=== PATIENT | female | born 1955 | race Caucasian/White ===

== ENCOUNTER 2018-01-07 16:52 | Emergency (ER) | payer MEDICARE, OTHER, SELFPAY ==
[2018-01-07] VITALS (27 sets, daily range): BP systolic 171–178; BP diastolic 69–84; PULSE 81–95; RESP 13–44; TEMP 37; O2SAT 93–100
[2018-01-07] MEDS: Normal Saline 250 ML IV (17:45)
--- NOTE | 2018-01-07 17:58 | ED.GENADUL ---
Disposition Clinical Impression: Diabetes Disposition: HOME Condition: Fair Additional Instructions: Continue to encourage hydration. Please go back to your typical 40 units of Lantus dosing. Continue with sliding scale as previously advised. Please follow-up with primary care as soon as possible, please contact the office tomorrow to schedule appointment. If you develop vomiting, inability to stay hydrated, visual changes, shortness of breath, chest pain, inability to control your glucose or other new/worsening symptoms please seek care urgently once again. Continue other recommendations as ordered the time of discharge by [facility]. Referrals: Vickie Corey [Primary Care Provider] - Medical Decision Making - Lab Data Laboratory Tests 01/07/18 17:01 Sodium Cancelled Potassium Cancelled Chloride Cancelled Carbon Dioxide Cancelled Anion Gap Cancelled BUN Cancelled Creatinine Cancelled Estimated GFR/1.73 m2 Cancelled Glucose Cancelled Calcium Cancelled Results reviewed for labs ordered during visit: Yes - Medical Decision Making Patient presents today with chief complaint of hyperglycemia. Patient reports that typically her glucose is very well controlled. Is typically not 40 units of Lantus nightly. However, this was decreased to 10 at the time of discharge 2 days ago from [facility]. She reports that at the time she was at [facility] she was having episodes of hypoglycemia. However, she states that this was linked to her having very poor p.o. intake. The patient is being treated for an ileus, she was being given clear liquid diet. Now that her diet has progressed her glucose has been increasing. She reports overall she is feeling quite well. Patient is not tachypneic. She is not tachycardic. Overall, patient appears much improved from when I saw her prior to her admission at [facility]. Pyama-co-laae testing here reveals a glucose of high on her glucometer. We will obtain laboratory evaluation. I have also asked for a urine specimen although the patient urinates very infrequently. We will attempt to collect a specimen. Patient will receive a 250 cc saline bolus. Laboratory evaluation significant for WBC of 26, this is typical baseline for the patient. Creatinine is 6.3 which is also baseline. Glucose is 727. Patient has not had spiked glucose like this historically. Sodium slightly low at 127. Potassium is 3.6. Discussed case with Dr. Osborn as well as planned for patient's hyperglycemia. She is received 250 cc bolus. I am hesitant to do more than this is the patient is on peritoneal dialysis and is due for another treatment. She continues to report that she feels quite well. We will recheck a another [id number] glucose. Patient be given her 40 of Lantus. She states that prior to her recent hospitalization she had been on 40 units of Lantus every night for several years and this is typically kept her fairly well controlled. Her diet is back to normal I feel that bring her back to her typical dosing is appropriate. She feels that her dietary intake and appetite is back to baseline. We will also give short acting insulin based on her most recent [id number] testing. Patient will be given p.o. potassium as well. Potassium currently 3.6. Bicarb is normal, no anion gap, no ketones in urine. Despite patient's unusually high glucose, I do not see evidence of DKA at this time. Despite bolus, POC glucose still continues to read as high. Patient will be given 6 units of NovoLog. She received 40 units of Lantus. 40 mg of p.o. potassium. Recheck of glucose is 586. Discussed case with Dr. Hayward. We discussed further treatment. However, as the patient is down trending, patient will not be eating further tongiht, Dr. Hayward recommended no further insulin therapy. There is no evidence laboratory evaluation the patient is in DKA. She continues to feel quite quite well and is requesting discharge home. I advised that she go back to her typical Lantus dosing. She will follow-up with primary care tomorrow. Advised she continue with her short acting sliding scale as previously advised. She will otherwise follow the recommendations at [facility]. We also discussed that she needs to continue to monitor her oral intake. However, as her dietary intake is back to baseline I feel that returning her medications to baseline is appropriate at this time. We did discuss the signs symptoms of DKA as well as hypoglycemia and when to seek care immediately once again. Patient is to be discharged at this time, she will be able to complete her home peritoneal dialysis once discharged. She was given strict return precautions. Her will contact primary care tomorrow morning to set up follow-up appointment. All the questions and concerns were addressed in agreement with this plan. History of Present Illness - General Chief complaint: Diabetes Stated complaint: HIGH GLUCOSE Time Seen by Provider: 01/07/18 16:53 Source: patient, family, RN notes reviewed Mode of arrival: ambulatory Limitations: no limitations - History of Present Illness Initial comments: Patient is a 62-year-old female, well-known to myself, with chief complaint of hyperglycemia. Patient is accompanied by her . Patient has history of type II diabetes, end-stage renal failure, hypertension, hyperlipidemia. Patient performs home peritoneal dialysis 5 times daily. Patient presents today with chief complaint of hyperglycemia with reading of high at home. Patient reports that she was discharged from [facility] 2 days ago where she is being treated for metabolic encephalopathy. Patient had been transferred to [facility] from our institution after patient was being found to have altered mental status thought to be associated with methadone usage. At the time of discharge her p.o. intake had been very diminished and that her glucose had been low. However, she reports that since being home her appetite has been improving. Patient had difficulty with constipation while at [facility]. This is thought to be related to narcotic usage after being treated for distal fibular fracture. She reports that she typically uses daily Lantus. Had been taking 40 mg daily but was discharged with directions to take 10 mg daily. She states that she had pancakes with syrup, baking, milk, orange juice thus far today. Her and states that she was snacking this afternoon. Home care then checked her glucose and found this elevated reading. She reports overall she is feeling her baseline. She denies any visual change. No nausea or vomiting. No GI upset. Has been performing her dialysis is typical. Last performed this at 1400. Patient makes minimal urine. - Related Data Aspirin [Aspirin EC] 81 mg PO DAILY 10/26/12 Insulin Glargine,Hum.rec.anlog [Lantus Solostar] 10 unit SQ DAILY 10/26/12 Acetaminophen [Tylenol] 325 mg PO PRN PRN 12/15/15 Calcium Acetate [Phoslo Gel Cap] 1 tab PO AC 12/15/15 Docusate Sodium [Colace] 100 mg PO DAILY 12/13/16 Polyethylene Glycol 3350 [Miralax] 1 packet PO DAILY 12/13/16 Insulin Aspart [NovoLOG Flexpen] 10 - 14 units SC AC #0 12/14/16 Rosuvastatin [Crestor] 5 mg PO HS #30 tab 12/14/16 Calcitriol 0.25 mcg PO .MON/WED/FRI 09/12/17 Folic Acid/Vitamin B Comp W-C [Nephrocaps] 1 cap PO DAILY 09/12/17 Metoprolol Succinate 1 tab PO DAILY 09/12/17 Sevelamer Carbonate [Renvela] 2 cap PO AC 09/12/17 Hydrocodone/Acetaminophen [Vicodin 5-300 mg Tablet] 1 each PO HS 11/08/17 Lorazepam [Ativan] 0.5 mg PO HS 11/08/17 Rolaidos 2 tab PO HS 11/08/17 Sevelamer Carbonate [Renvela] 800 mg PO QMEALS 11/16/17 Gabapentin 100 mg PO TID 12/18/17 Allergies Allergy/AdvReac Type Severity Reaction Status Date / Time alprazolam [From Xanax] Allergy Severe lethargic Unverified 01/07/18 17:07 ciprofloxacin [From Cipro] Allergy Mild Skin Rash Unverified 01/07/18 17:07 pneumococcal vaccine Allergy arm swelled Unverified 01/07/18 17:07 lisinopril AdvReac Intermediate hyperkalemi Unverified 01/07/18 17:07 a Review of Systems Constitutional: no symptoms reported, see HPI Eyes: denies: vision change Respiratory: no symptoms reported. denies: cough, shortness of breath, SOB at rest, stridor, wheezing Cardiovascular: denies: chest pain, palpitations Gastrointestinal: denies: abdominal pain, nausea, vomiting, diarrhea Genitourinary: as per HPI. denies: urgency, dysuria, frequency Musculoskeletal: as per HPI (Patient continues to have discomfort in the left lower extremity associated with ankle fracture) Skin: denies: rash Neurological: denies: headache Past Medical History - Past Medical History Medical history: CAD, cancer (CLL), diabetes, ESRD, hyperlipidemia, hypertension Surgical history: , hysterectomy, other (Multiple attempts at fistula and left arm complicated by infections, recent antibiotics 2 weeks ago, area now healed) - Social History Alcohol use: none Drug use: none General Exam - General Limitations: no limitations General appearance: alert, in no apparent distress - Head Head exam: Present: atraumatic - Eye Eye exam: Present: normal apperance - ENT ENT exam: Present: mucous membranes dry - Respiratory Respiratory exam: Present: normal lung sounds bilaterally. Absent: respiratory distress, wheezes, rales, rhonchi - Cardiovascular Cardiovascular Exam: Present: regular rate, systolic murmur - GI/Abdominal GI/Abdominal exam: Present: soft. Absent: distended, tenderness, guarding - Rectal Rectal exam: Present: deferred - Extremities Exam Extremities exam: Absent: normal inspection (Left lower extremity is in a splint) - Neurological Exam Neurological exam: Present: alert, abnormal gait (Patient is able to weight-bear well on the right lower extremity but is nonweightbearing on left lower extremity) - Psychiatric Psychiatric exam: Present: normal affect, normal mood - Skin Skin exam: Present: warm, dry, normal color (Patient appears pale but this is baseline from icing her historically) Course Vital Signs - 24 hr 01/07/18 16:59 Temperature 37 C Pulse 87 Respiratory 23 Rate Blood Pressure 178/69 Pulse Oximetry 94 L
--- NOTE | 2018-01-07 18:07 | ED.GENADUL_ITS ---
Disposition Clinical Impression: Diabetes Disposition: HOME Condition: Fair Additional Instructions: Continue to encourage hydration. Please go back to your typical 40 units of Lantus dosing. Continue with sliding scale as previously advised. Please follow-up with primary care as soon as possible, please contact the office tomorrow to schedule appointment. If you develop vomiting, inability to stay hydrated, visual changes, shortness of breath, chest pain, inability to control your glucose or other new/worsening symptoms please seek care urgently once again. Continue other recommendations as ordered the time of discharge by [facility]. Referrals: Vickie Corey [Primary Care Provider] - Medical Decision Making - Lab Data Laboratory Tests 01/07/18 17:01 Sodium Cancelled Potassium Cancelled Chloride Cancelled Carbon Dioxide Cancelled Anion Gap Cancelled BUN Cancelled Creatinine Cancelled Estimated GFR/1.73 m2 Cancelled Glucose Cancelled Calcium Cancelled Results reviewed for labs ordered during visit: Yes - Medical Decision Making Patient presents today with chief complaint of hyperglycemia. Patient reports that typically her glucose is very well controlled. Is typically not 40 units of Lantus nightly. However, this was decreased to 10 at the time of discharge 2 days ago from [facility]. She reports that at the time she was at [facility] she was having episodes of hypoglycemia. However, she states that this was linked to her having very poor p.o. intake. The patient is being treated for an ileus, she was being given clear liquid diet. Now that her diet has progressed her glucose has been increasing. She reports overall she is feeling quite well. Patient is not tachypneic. She is not tachycardic. Overall, patient appears much improved from when I saw her prior to her admission at [facility]. [id number] testing here reveals a glucose of high on her glucometer. We will obtain laboratory evaluation. I have also asked for a urine specimen although the patient urinates very infrequently. We will attempt to collect a specimen. Patient will receive a 250 cc saline bolus. Laboratory evaluation significant for WBC of 26, this is typical baseline for the patient. Creatinine is 6.3 which is also baseline. Glucose is 727. Patient has not had spiked glucose like this historically. Sodium slightly low at 127. Potassium is 3.6. Discussed case with Dr. Osborn as well as planned for patient's hyperglycemia. She is received 250 cc bolus. I am hesitant to do more than this is the patient is on peritoneal dialysis and is due for another treatment. She continues to report that she feels quite well. We will recheck a another point- of-care glucose. Patient be given her 40 of Lantus. She states that prior to her recent hospitalization she had been on 40 units of Lantus every night for several years and this is typically kept her fairly well controlled. Her diet is back to normal I feel that bring her back to her typical dosing is appropriate. She feels that her dietary intake and appetite is back to baseline. We will also give short acting insulin based on her most recent point -of-care testing. Patient will be given p.o. potassium as well. Potassium currently 3.6. Bicarb is normal, no anion gap, no ketones in urine. Despite patient's unusually high glucose, I do not see evidence of DKA at this time. Despite bolus, POC glucose still continues to read as high. Patient will be given 6 units of NovoLog. She received 40 units of Lantus. 40 mg of p.o. potassium. Recheck of glucose is 586. Discussed case with Dr. Hayward. We discussed further treatment. However, as the patient is down trending, patient will not be eating further tongiht, Dr. Hayward recommended no further insulin therapy. There is no evidence laboratory evaluation the patient is in DKA. She continues to feel quite quite well and is requesting discharge home. I advised that she go back to her typical Lantus dosing. She will follow-up with primary care tomorrow. Advised she continue with her short acting sliding scale as previously advised. She will otherwise follow the recommendations at [facility]. We also discussed that she needs to continue to monitor her oral intake. However, as her dietary intake is back to baseline I feel that returning her medications to baseline is appropriate at this time. We did discuss the signs symptoms of DKA as well as hypoglycemia and when to seek care immediately once again. Patient is to be discharged at this time, she will be able to complete her home peritoneal dialysis once discharged. She was given strict return precautions. Her will contact primary care tomorrow morning to set up follow-up appointment. All the questions and concerns were addressed in agreement with this plan. History of Present Illness - General Chief complaint: Diabetes Stated complaint: HIGH GLUCOSE Time Seen by Provider: 01/07/18 16:53 Source: patient, family, RN notes reviewed Mode of arrival: ambulatory Limitations: no limitations - History of Present Illness Initial comments: Patient is a 62-year-old female, well-known to myself, with chief complaint of hyperglycemia. Patient is accompanied by her . Patient has history of type II diabetes, end-stage renal failure, hypertension, hyperlipidemia. Patient performs home peritoneal dialysis 5 times daily. Patient presents today with chief complaint of hyperglycemia with reading of high at home. Patient reports that she was discharged from [facility] 2 days ago where she is being treated for metabolic encephalopathy. Patient had been transferred to [facility] from our institution after patient was being found to have altered mental status thought to be associated with methadone usage. At the time of discharge her p.o. intake had been very diminished and that her glucose had been low. However, she reports that since being home her appetite has been improving. Patient had difficulty with constipation while at [facility]. This is thought to be related to narcotic usage after being treated for distal fibular fracture. She reports that she typically uses daily Lantus. Had been taking 40 mg daily but was discharged with directions to take 10 mg daily. She states that she had pancakes with syrup, baking, milk, orange juice thus far today. Her and states that she was snacking this afternoon. Home care then checked her glucose and found this elevated reading. She reports overall she is feeling her baseline. She denies any visual change. No nausea or vomiting. No GI upset. Has been performing her dialysis is typical. Last performed this at 1400. Patient makes minimal urine. - Related Data Aspirin [Aspirin EC] 81 mg PO DAILY 10/26/12 Insulin Glargine,Hum.rec.anlog [Lantus Solostar] 10 unit SQ DAILY 10/26/12 Acetaminophen [Tylenol] 325 mg PO PRN PRN 12/15/15 Calcium Acetate [Phoslo Gel Cap] 1 tab PO AC 12/15/15 Docusate Sodium [Colace] 100 mg PO DAILY 12/13/16 Polyethylene Glycol 3350 [Miralax] 1 packet PO DAILY 12/13/16 Insulin Aspart [NovoLOG Flexpen] 10 - 14 units SC AC #0 12/14/16 Rosuvastatin [Crestor] 5 mg PO HS #30 tab 12/14/16 Calcitriol 0.25 mcg PO .MON/WED/FRI 09/12/17 Folic Acid/Vitamin B Comp W-C [Nephrocaps] 1 cap PO DAILY 09/12/17 Metoprolol Succinate 1 tab PO DAILY 09/12/17 Sevelamer Carbonate [Renvela] 2 cap PO AC 09/12/17 Hydrocodone/Acetaminophen [Vicodin 5-300 mg Tablet] 1 each PO HS 11/08/17 Lorazepam [Ativan] 0.5 mg PO HS 11/08/17 Rolaidos 2 tab PO HS 11/08/17 Sevelamer Carbonate [Renvela] 800 mg PO QMEALS 11/16/17 Gabapentin 100 mg PO TID 12/18/17 Allergies Allergy/AdvReac Type Severity Reaction Status Date / Time alprazolam [From Xanax] Allergy Severe lethargic Unverified 01/07/18 17:07 ciprofloxacin [From Cipro] Allergy Mild Skin Rash Unverified 01/07/18 17:07 pneumococcal vaccine Allergy arm swelled Unverified 01/07/18 17:07 lisinopril AdvReac Intermediate hyperkalemi Unverified 01/07/18 17:07 a Review of Systems Constitutional: no symptoms reported, see HPI Eyes: denies: vision change Respiratory: no symptoms reported. denies: cough, shortness of breath, SOB at rest, stridor, wheezing Cardiovascular: denies: chest pain, palpitations Gastrointestinal: denies: abdominal pain, nausea, vomiting, diarrhea Genitourinary: as per HPI. denies: urgency, dysuria, frequency Musculoskeletal: as per HPI (Patient continues to have discomfort in the left lower extremity associated with ankle fracture) Skin: denies: rash Neurological: denies: headache Past Medical History - Past Medical History Medical history: CAD, cancer (CLL), diabetes, ESRD, hyperlipidemia, hypertension Surgical history: , hysterectomy, other (Multiple attempts at fistula and left arm complicated by infections, recent antibiotics 2 weeks ago, area now healed) - Social History Alcohol use: none Drug use: none General Exam - General Limitations: no limitations General appearance: alert, in no apparent distress - Head Head exam: Present: atraumatic - Eye Eye exam: Present: normal apperance - ENT ENT exam: Present: mucous membranes dry - Respiratory Respiratory exam: Present: normal lung sounds bilaterally. Absent: respiratory distress, wheezes, rales, rhonchi - Cardiovascular Cardiovascular Exam: Present: regular rate, systolic murmur - GI/Abdominal GI/Abdominal exam: Present: soft. Absent: distended, tenderness, guarding - Rectal Rectal exam: Present: deferred - Extremities Exam Extremities exam: Absent: normal inspection (Left lower extremity is in a splint ) - Neurological Exam Neurological exam: Present: alert, abnormal gait (Patient is able to weight- bear well on the right lower extremity but is nonweightbearing on left lower extremity) - Psychiatric Psychiatric exam: Present: normal affect, normal mood - Skin Skin exam: Present: warm, dry, normal color (Patient appears pale but this is baseline from icing her historically) Course Vital Signs - 24 hr 01/07/18 16:59 Temperature 37 C Pulse 87 Respiratory 23 Rate Blood Pressure 178/69 Pulse Oximetry 94 L
[2018-01-07 18:10] LABS: ALT 53 U/L (12-78); AST 38 U/L (15-37); Abs Immature Grans 0.11 k/cumm (0.0-0.09); Absolute Basophil Count 0.03 k/cumm (0.0-0.2); Absolute Eosinophil Count 0.18 k/cumm (0.0-0.7); Absolute Lymphocyte Count 13.31 k/cumm (1.2-3.4); Absolute Neutrophil Count 11.55 k/cumm (1.2-6.7); Albumin 2.1 g/dL (3.4-5.0); Alkaline Phosphatase 103 U/L (46-116); Anion Gap 9.6 mmol/L (3-11); BUN 35 mg/dL (7-18); Basophils % 0.1; Bilirubin, Total 0.4 mg/dL (0.2-1.0); CO2 30.4 mmol/L (21.0-32.0); Calcium 8.5 mg/dL (8.5-10.1); Chloride 87 mmol/L (98-107); Eosinophils % 0.7; HGB 11.1 g/dL (12.0-15.5); Immature Grans % 0.4; Lymphocytes % 50.6; Mean Corp. HGB Concentration 32.6 g/dL (32.0-36.0); Mean Corpuscular Hemoglobin 31.2 pg (27.0-33.0); Mean Corpuscular Volume 95.5 fL (80-95); Mean Platelet Volume 10.8 fL (8.0-11.0); Monocytes % 4.3; Neutrophils % 43.9; Platelet Count 350 x1000/uL (130-400); Potassium 3.6 mmol/L (3.5-5.1); RBC 3.56 m/cumm (4.00-5.20); RBC Distribution Width 13.9 % (11.7-14.6); Sodium 127 mmol/L (136-145)
[2018-01-07 18:28] LABS: Absolute Monocyte Count 1.13 k/cumm (0.11-0.7)
[2018-01-07 18:32] LABS: CREATININE 6.31 mg/dL (0.55-1.02); Glucose 727 mg/dL (70-100)
[2018-01-07 19:00] LABS: Anisocytosis 2+; Diff Comment Diff Reviewed
[2018-01-07 19:06] LABS: Bilirubin Negative (Negative); Blood Small (Negative); Clarity Sl Cloudy; Glucose >=1000 mg/dL (Negative); Ketones Negative (Negative); Leukocyte Esterase Negative (Negative); Nitrite Negative (Negative); Specific Gravity 1.015 (1.005-1.025); Urobilinogen 0.2 EU/dL (Up TO 0.2)
[2018-01-07 19:16] LABS: Bacteria Moderate HPF (Negative); C & S Indicated? No/Sq. Contamination; Casts Negative LPF (Negative); Crystals Negative HPF (Negative); Epithelial Cells Many HPF (Negative); Mucus Negative (Negative); RBC Negative (0-2)
[2018-01-07] MEDS: Insulin Aspart 100 UNITS/ML UNIT 6 UNITS SC (20:10)
[2018-01-07] MEDS: Insulin Glargine 300 UNITS/3 ML PEN 40 UNITS SC (20:15)
[2018-01-07] MEDS: Potassium Chloride 20 MEQ TABCR 40 MEQ PO (20:17)
[2018-01-08 00:15] VITALS: BP 171/84; PULSE 85; RESP 22; O2SAT 94
== END 2018-01-07 21:34 | disposition home or self-care (01) ==
PROVIDERS: Physician Assistant; Emergency Provider Physician Assistant; PCP Family Medicine
DX: E11.22 Type 2 diabetes mellitus with diabetic chronic kidney disease (principal); N18.6 End stage renal disease; Z99.2 Dependence on renal dialysis; I10 Essential (primary) hypertension
CPT/HCPCS: 96360; 99284; 99285; J1815; 36415; 36416; 80048; 80053; 82962; 81003; 81015; 85025

== ENCOUNTER 2018-02-12 12:12 | Emergency (ER) | payer OTHER, MEDICARE, SELFPAY ==
[2018-02-12] VITALS (38 sets, daily range): BP systolic 69–167; BP diastolic 41–95; PULSE 68–82; RESP 13–26; TEMP 36.5–36.8; O2SAT 87–99
--- NOTE | 2018-02-12 13:06 | ED.GENADUL_ITS ---
Discharge Plan Disposition Patient Disposition: HOME Discharge Details Chief Complaint: AMS/LOC Clinical Impression: Confusion, Hypokalemia Primary Care Provider: Vickie Corey ED Provider: Zan Guzman Home Meds and New Rx's Prescriptions: Continue lorazepam [Ativan] 0.5 MG tablet 0.5 mg PO HS RF: 0 hydrocodone-acetaminophen [Vicodin] 1 EACH tablet 1 ea PO HS RF: 0 rolaidos 2 tab PO HS RF: 0 aspirin 81 MG tablet,delayed release (DR/EC) 81 mg PO DAILY RF: 0 insulin glargine [Lantus Solostar U-100 Insulin] 100 UNIT/1 ML insulin pen 55 unit SQ DAILY RF: 0 calcium acetate 667 MG capsule 1 tab PO AC RF: 0 acetaminophen [Tylenol] 325 MG tablet 325 mg PO PRN PRNRF: 0 polyethylene glycol 3350 17 GM powder in packet 1 packet PO DAILY RF: 0 docusate sodium [Colace] 100 MG capsule 100 mg PO DAILY RF: 0 rosuvastatin [Crestor] 5 MG tablet 5 mg PO HS Qty: 30 RF: 3 insulin aspart U-100 [Novolog Flexpen U-100 Insulin] 300 UNITS/3 ML insulin pen 10 - 14 units Sub-Q AC Qty: 0 RF: 0 metoprolol succinate 100 MG tablet extended release 24 hr 1 tab PO DAILY RF: 0 B complex with C#20-folic acid [Renal Caps] 1 CAP capsule 1 cap PO DAILY RF: 0 calcitriol 0.25 MCG capsule 0.25 mcg PO .MON/WED/FRI RF: 0 sevelamer carbonate [Renvela] 800 MG tablet 2 cap PO AC RF: 0 sevelamer carbonate [Renvela] 800 MG tablet 800 mg PO QMEALS RF: 0 gabapentin 100 MG capsule 100 mg PO TID RF: 0 Discharge Instructions Instructions: Hypokalemia (ED), Altered Mental Status (ED) Additional Instructions: Please follow-up with your primary care physician. Call today to schedule follow-up for later this week. Return to the ER for any worsening or new concerning symptoms. Referrals: Vickie Corey [Primary Care Provider] - Discharge Data Discharge Date/Time-TO BE ENTERED AT DEPARTURE: 02/12/18 16:46 Medical Decision Making MDM Narrative Medical decision making narrative: 13:05 -- 62yo f with ESRD on peritoneal dialysis here with altered mentation. Afebrile. Hemodynamically stable. Abd benign. Consider electrolyte abnormalities. Will check labs. 15:35 -- Labs reviewed: Chronic leukocytosis noted and unchanged. Hypokalemia with potassium of 3.0 noted. This may be contributing to her symptoms. Plan to treat with oral potassium 20 mEq and 10 mg of IV potassium. Patient reassessed and abdomen remains benign. Patient has been stable here. I reviewed the diagnostic results with the patient and her and plan to treat with potassium. I recommended that they follow-up with their primary care physician later this week and that they should return immediately should they have any worsening or new concerning symptoms. Lab Data Lab results reviewed: Yes I reviewed the patient's lab results. Lab Results 02/12/18 02/12/18 02/12/18 Range/Units 13:15 13:15 13:15 WBC 22.37 H (4.4-10.8) k/cumm RBC 3.41 L (4.00-5.20) m/cumm Hgb 10.8 L (12.0-15.5) g/dL Hct 32.3 L (36.0-46.0) % MCV 94.7 (80-95) fL MCH 31.7 (27.0-33.0) pg MCHC 33.4 (32.0-36.0) g/dL RDW 12.6 (11.7-14.6) % Plt Count 162 (130-400) x1000/uL MPV 11.7 H (8.0-11.0) fL Immature Gran % 0.4 Neutrophils % 29.1 Lymphocytes % 63.7 Monocytes % 5.8 Eosinophils % 0.8 Basophils % 0.2 Absolute Neutrophils 6.51 (1.2-6.7) k/cumm Absolute Lymphocytes 14.25 H (1.2-3.4) k/cumm Absolute Monocytes 1.30 H (0.11-0.7) k/cumm Absolute Eosinophils 0.18 (0.0-0.7) k/cumm Absolute Basophils 0.04 (0.0-0.2) k/cumm Sodium 138 (136-145) mmol/L Potassium 3.0 L (3.5-5.1) mmol/L Chloride 99 (98-107) mmol/L Carbon Dioxide 29.4 (21.0-32.0) mmol/L Anion Gap 9.6 (3-11) mmol/L BUN 41 H (7-18) mg/dL Creatinine 6.71 H* (0.55-1.02) mg/dL Estimated GFR/1.73 m2 6.25 (mL/min/1.73m2) Glucose 114 H (70-100) mg/dL Calcium 8.8 (8.5-10.1) mg/dL Total Bilirubin 0.2 (0.2-1.0) mg/dL AST 26 (15-37) U/L ALT 34 (12-78) U/L Alkaline Phosphatase 82 (46-116) U/L Ammonia 14 (11-32) umol/L Total Protein 5.6 L (6.4-8.2) g/dL Albumin 2.5 L (3.4-5.0) g/dL TSH 1.80 (0.358-3.74) uIU/mL HPI - General Adult General Date/Time Provider Initiated Documentation: 02/12/18 12:41 . Limitations to Documentation: altered mental status . Information obtained by: patient and family . HPI Narrative: 62 yo f with ESRD on HD, DM, HTN, here with altered mental status. Hx limited 2/2 altered mentation. notes that over the past 2 days mentation has declined. Wax and wanes. Seems confused. Inappropiate responses and poor hand writing. At times severe. No modifiers. No pain. Related Data Home Medications Medication Instructions Recorded Confirmed aspirin 81 mg PO DAILY 10/26/12 02/12/18 insulin glargine [Lantus Solostar 55 unit SQ DAILY 10/26/12 02/12/18 U-100 Insulin] acetaminophen [Tylenol] 325 mg PO PRN PRN 12/15/15 02/12/18 calcium acetate 1 tab PO AC 12/15/15 02/12/18 docusate sodium [Colace] 100 mg PO DAILY 12/13/16 02/12/18 polyethylene glycol 3350 1 packet PO DAILY 12/13/16 02/12/18 B complex with C#20-folic acid 1 cap PO DAILY 09/12/17 02/12/18 [Renal Caps] calcitriol 0.25 mcg PO .MON/MON/Mon09/12/17 02/12/18 metoprolol succinate 1 tab PO DAILY 09/12/17 02/12/18 sevelamer carbonate [Renvela] 2 cap PO AC 09/12/17 02/12/18 Rolaidos 2 tab PO HS 11/08/17 02/12/18 hydrocodone-acetaminophen [Vicodin] 1 ea PO HS 11/08/17 02/12/18 lorazepam [Ativan] 0.5 mg PO HS 11/08/17 02/12/18 sevelamer carbonate [Renvela] 800 mg PO QMEALS 11/16/17 02/12/18 gabapentin 100 mg PO TID 12/18/17 02/12/18 Previous Rx's Medication Instructions Recorded insulin aspart U-100 [Novolog 10 - 14 units SUB-Q AC #0 12/14/16 Flexpen U-100 Insulin] rosuvastatin [Crestor] 5 mg PO HS #30 tab 12/14/16 Allergies Allergy/AdvReac Type Severity Reaction Status Date / Time alprazolam [From Xanax] Allergy Severe lethargic Unverified 02/12/18 12:54 ciprofloxacin [From Cipro] Allergy Mild Skin Rash Unverified 02/12/18 12:54 pneumococcal vaccine Allergy arm swelled Unverified 02/12/18 12:54 lisinopril AdvReac Intermediate hyperkalemi Unverified 02/12/18 12:54 a General Stated Complaint: AMS/LOC KAREN: 2 Review of Systems Review of Systems All systems reviewed & are unremarkable except as noted in HPI and below Cardiovascular Denies chest pain, Denies syncope, Denies irregular heart rhythm and Denies dyspnea Respiratory Denies dyspnea Gastrointestinal Denies abdominal pain, Denies nausea and Denies vomiting Neurologic Reports confusion, Denies syncope and Denies seizure-like activity Psychiatric Reports confusion Exam Const General: cooperative and no acute distress Orientation: alert and awake Limitations: altered mental status [facility] Head: normocephalic and atraumatic Mouth: moist mucous membranes Eyes Conjunctivae: conjunctivae normal EOM: EOM intact bilaterally Neck Neck: normal visual inspection, trachea midline and No JVD Chest Chest: no tenderness Resp Effort & Inspection: normal respiratory effort Auscultation: clear to auscultation bilaterally, no rales, no rhonchi and no wheezes Cardio Rate: regular rate Rhythm: regular rhythm Heart Sounds: no gallops, murmur systolic II/ and no rubs GI Palpation: soft and nontender Auscultation: normal bowel sounds Skin General skin exam: dry skin Other: warm Neuro General: alert, awake, oriented Patient Orientation: Person, tone normal, moves all extremities, no meningeal signs, no focal motor deficits, CN's II-XI intact bilaterally and confused (thinks aug, when asked year responds it's a pain) Cranial Nerves: PERRL, accommodation normal and EOM intact bilaterally Speech: other (confused at times, speech clear) Motor: strength 5/5 throughout Sensory Exam: no sensory deficits noted Extrem General: no pedal edema Course Vital Signs Temperature 36.5 C 02/12/18 12:38 Pulse 73 02/12/18 12:38 Respiratory Rate 16 02/12/18 12:38 Blood Pressure 127/72 02/12/18 12:38 Pulse Oximetry 97 02/12/18 12:38 Temperature 36.5 C 02/12/18 12:38 Pulse 73 02/12/18 12:38 Respiratory Rate 16 02/12/18 12:45 Blood Pressure 127/72 02/12/18 12:38 Pulse Oximetry 97 02/12/18 12:38
[2018-02-12 13:27] LABS: Abs Immature Grans 0.09 k/cumm (0.0-0.09); Basophils % 0.2; Eosinophils % 0.8; HCT 32.3 % (36.0-46.0); HGB 10.8 g/dL (12.0-15.5); Immature Grans % 0.4; Lymphocytes % 63.7; Mean Corp. HGB Concentration 33.4 g/dL (32.0-36.0); Mean Corpuscular Hemoglobin 31.7 pg (27.0-33.0); Mean Corpuscular Volume 94.7 fL (80-95); Mean Platelet Volume 11.7 fL (8.0-11.0); Monocytes % 5.8; Neutrophils % 29.1; Platelet Count 162 x1000/uL (130-400); RBC 3.41 m/cumm (4.00-5.20); RBC Distribution Width 12.6 % (11.7-14.6); White Blood Cell Count 22.37 k/cumm (4.4-10.8)
[2018-02-12 13:28] LABS: Absolute Basophil Count 0.04 k/cumm (0.0-0.2); Absolute Eosinophil Count 0.18 k/cumm (0.0-0.7); Absolute Lymphocyte Count 14.25 k/cumm (1.2-3.4); Absolute Neutrophil Count 6.51 k/cumm (1.2-6.7)
[2018-02-12 13:35] LABS: Ammonia 14 umol/L (11-32)
--- NOTE | 2018-02-12 13:45 | DI.CT_ITS ---
SYMPTOMS/DIAGNOSIS: ALTERED MENTATION CT BRAIN: Noncontrast. Comparison 12/18/17. The ventricles and sulci are consistent with the patient's age. There are areas of decreased attenuation in the white matter consistent with small vessel ischemic disease. No acute intracranial hemorrhage , infarct, midline shift or mass effect is identified. The visualized paranasal sinuses are clear. No fluid levels are seen. The mastoid air cells are well pneumatized. The calvarium is intact. IMPRESSION: No acute intracranial process. The findings were discussed with Qi Suarez of the emergency department on the date of the examination.
[2018-02-12 13:55] LABS: ALT 34 U/L (12-78); AST 26 U/L (15-37); Albumin 2.5 g/dL (3.4-5.0); Alkaline Phosphatase 82 U/L (46-116); Anion Gap 9.6 mmol/L (3-11); BUN 41 mg/dL (7-18); Bilirubin, Total 0.2 mg/dL (0.2-1.0); CO2 29.4 mmol/L (21.0-32.0); Calcium 8.8 mg/dL (8.5-10.1); Chloride 99 mmol/L (98-107); Estimated GFR 6.25 (mL/min/1.73m2); Glucose 114 mg/dL (70-100); Sodium 138 mmol/L (136-145); Total Protein 5.6 g/dL (6.4-8.2)
[2018-02-12 14:03] LABS: CREATININE 6.71 mg/dL (0.55-1.02)
[2018-02-12] MEDS: Potassium Chloride 20 MEQ TABCR 40 MEQ PO (15:22)
[2018-02-12] MEDS: POTASSIUM CHLORIDE 10 MEQ/100 ML BAG 100 MEQ IVPB (15:24)
== END 2018-02-12 16:46 | disposition home or self-care (01) ==
PROVIDERS: Emergency Provider Student in an Organized Health Care Education/Training Program; PCP Family Medicine
DX: R41.0 Disorientation, unspecified (principal); E87.6 Hypokalemia; C91.10 Chronic lymphocytic leukemia of B-cell type not having achieved remission; E11.22 Type 2 diabetes mellitus with diabetic chronic kidney disease; Z79.4 Long term (current) use of insulin; I12.0 Hypertensive chronic kidney disease with stage 5 chronic kidney disease or end stage renal disease; N18.6 End stage renal disease; Z99.2 Dependence on renal dialysis
CPT/HCPCS: 36415; 36416; 80053; 82962; 93005; 96365; 99285; 70450; 82140; 84443; 85025; 93010; J3480

== ENCOUNTER 2018-02-16 15:44 | Outpatient (REF) | payer OTHER, MEDICARE, SELFPAY ==
[2018-02-16 20:33] LABS: Anion Gap 9.2 mmol/L (3-11); BUN 40 mg/dL (7-18); CO2 30.8 mmol/L (21.0-32.0); Calcium 8.9 mg/dL (8.5-10.1); Chloride 100 mmol/L (98-107); Estimated GFR 6.73 (mL/min/1.73m2); Glucose 202 mg/dL (70-100); Potassium 3.4 mmol/L (3.5-5.1); Sodium 140 mmol/L (136-145)
[2018-02-16 21:44] LABS: CREATININE 6.29 mg/dL (0.55-1.02)
== END 2018-02-16 16:04 ==
LOC: NCHCN 15:44
PROVIDERS: PCP Family Medicine; Visit Provider Family Medicine
DX: R53.1 Weakness (principal)
CPT/HCPCS: 80048

== ENCOUNTER 2018-04-02 13:25 | Outpatient (CLI) | payer OTHER, MEDICARE, SELFPAY ==
[2018-04-02 14:05] LABS: ALT 32 U/L (12-78); AST 22 U/L (15-37); Albumin 3.1 g/dL (3.4-5.0); Alkaline Phosphatase 69 U/L (46-116); Anion Gap 9.5 mmol/L (3-11); BUN 60 mg/dL (7-18); Bilirubin, Total 0.4 mg/dL (0.2-1.0); CO2 30.5 mmol/L (21.0-32.0); Calcium 9.2 mg/dL (8.5-10.1); Chloride 97 mmol/L (98-107); Estimated GFR 6.41 (mL/min/1.73m2); Glucose 266 mg/dL (70-100); Potassium 3.8 mmol/L (3.5-5.1); Sodium 137 mmol/L (136-145)
[2018-04-02 14:10] LABS: CREATININE 6.56 mg/dL (0.55-1.02)
== END 2018-04-02 13:45 ==
PROVIDERS: PCP Family Medicine; Visit Provider Internal Medicine Medical Oncology
DX: C91.90 Lymphoid leukemia, unspecified not having achieved remission (principal)
CPT/HCPCS: 36415; 80053

== ENCOUNTER 2018-05-25 18:53 | Emergency (ER) | payer OTHER, MEDICARE, SELFPAY ==
[2018-05-25] VITALS (14 sets, daily range): BP systolic 103–131; BP diastolic 39–97; PULSE 71–79; RESP 13–25; TEMP 37–38.2; O2SAT 92–97
--- NOTE | 2018-05-25 19:39 | DI.RAD_ITS ---
SYMPTOM/DIAGNOSIS: COUGH, CONGESTION, ? PNEUMONIA PA AND LATERAL CHEST: Comparison is made with 12/13/17. The patient has a history of a peritoneal dialysis catheter. Free air is seen beneath the diaphragm which was also seen on chest xray of 12/13/17. The heart size is within normal limits. There is an infiltrate seen in the retrocardiac region on the lateral view. The lungs are otherwise clear. IMPRESSION: Retrocardiac infiltrate. Free air likely secondary to peritoneal dialysis catheter.
--- NOTE | 2018-05-25 20:04 | W.ED.GENAD ---
Discharge Plan Disposition Patient Disposition: [facility] Condition: Stable Discharge Details Chief Complaint: RespSymp Clinical Impression: Flu-like symptoms, Acute on chronic kidney failure, Acute hyperkalemia Primary Care Provider: Vickie Corey ED Provider: Ap Whitlock [place] Meds and New Rx's Prescriptions: No Action lorazepam [Ativan] 0.5 MG tablet 0.5 mg PO HS RF: 0 hydrocodone-acetaminophen [Vicodin] 1 EACH tablet 1 ea PO HS RF: 0 rolaidos 2 tab PO HS RF: 0 aspirin 81 MG tablet,delayed release (DR/EC) 81 mg PO DAILY RF: 0 Lantus Solostar U-100 Insulin 100 UNIT/1 ML insulin pen 55 unit SQ DAILY RF: 0 calcium acetate 667 MG capsule 1 tab PO AC RF: 0 acetaminophen [Tylenol] 325 MG tablet 325 mg PO PRN PRNRF: 0 polyethylene glycol 3350 17 GM powder in packet 1 packet PO DAILY RF: 0 docusate sodium [Colace] 100 MG capsule 100 mg PO DAILY RF: 0 rosuvastatin [Crestor] 5 MG tablet 5 mg PO HS Qty: 30 RF: 3 Novolog Flexpen U-100 Insulin 300 UNITS/3 ML insulin pen 10 - 14 units Sub-Q AC Qty: 0 RF: 0 metoprolol succinate 100 MG tablet extended release 24 hr 1 tab PO DAILY RF: 0 Renal Caps 1 CAP capsule 1 cap PO DAILY RF: 0 calcitriol 0.25 MCG capsule 0.25 mcg PO .MON/WED/FRI RF: 0 sevelamer carbonate [Renvela] 800 MG tablet 2 cap PO AC RF: 0 sevelamer carbonate [Renvela] 800 MG tablet 800 mg PO QMEALS RF: 0 gabapentin 100 MG capsule 100 mg PO TID RF: 0 Discharge Data Discharge Date/Time-TO BE ENTERED AT DEPARTURE: 05/25/18 22:55 Medical Decision Making <Barney Foreman DO - Last Filed: 05/26/18 09:19> This is a 63-year-old female with a past medical history of peritoneal dialysis, as well as CLL, who presents for symptoms of fatigue, cough, and congestion. Patient is febrile here in the emergency department. Lung sounds demonstrate no significant crackles but with her persistent cough and concern for clinical pneumonia. We will evaluate for flu in spite of her influenza test secondary to her chronic immunocompromise with her dialysis CLL. We will gently rehydrate the patient due to her evidence of mild clinical dehydration. We will treat with Tylenol for her fever, and reassess. The case will be signed out to my colleague Dr. Whitlock. EKG 19: 50 Rate 78, OK 170, QTc 410, QRS 90, sinus rhythm, no significant ST elevation or depression, slight peaking of T waves in V3 and V4. No T wave inversion. No Q waves. HPI <Barney Foreman, - Last Filed: 05/26/18 09:19> General Date/Time Provider Initiated Documentation: 05/25/18 19:33. HPI Narrative: This is a 62-year-old female with a past medical history of chronic kidney disease stage IV on home dialysis, as well as chronic lymphocytic leukemia, diabetes mellitus, and hypertension who presents today for evaluation of fatigue, cough that is nonproductive, weakness, temperature at home of 100.8. She has had a runny nose, and congestion as well. She has had her flu shot. She denies any chest pain, shortness of breath, abdominal pain, vomiting or diarrhea. She denies any headache, neck pain or neck stiffness. She denies any recent antibiotic use. She has missed a few of her episodes of dialysis today secondary to fatigue and not feeling well. Patient denies any other modifying factors. She denies any other complaints at this time. Related Data Home Medications Medication Instructions Recorded Confirmed Lantus Solostar U-100 Insulin 55 unit SQ DAILY 10/26/12 05/25/18 aspirin 81 mg PO DAILY 10/26/12 05/25/18 acetaminophen [Tylenol] 325 mg PO PRN PRN 12/15/15 05/25/18 calcium acetate 1 tab PO AC 12/15/15 05/25/18 docusate sodium [Colace] 100 mg PO DAILY 12/13/16 05/25/18 polyethylene glycol 3350 1 packet PO DAILY 12/13/16 05/25/18 Novolog Flexpen U-100 Insulin 10 - 14 units SUB-Q AC #0 12/14/16 05/25/18 rosuvastatin [Crestor] 5 mg PO HS #30 tab 12/14/16 05/25/18 Renal Caps 1 cap PO DAILY 09/12/17 05/25/18 calcitriol 0.25 mcg PO .MON/MON/FRI 09/12/17 05/25/18 metoprolol succinate 1 tab PO DAILY 09/12/17 05/25/18 sevelamer carbonate [Renvela] 2 cap PO AC 09/12/17 05/25/18 Rolaidos 2 tab PO HS 11/08/17 05/25/18 hydrocodone-acetaminophen [Vicodin] 1 ea PO HS 11/08/17 05/25/18 lorazepam [Ativan] 0.5 mg PO HS 11/08/17 05/25/18 sevelamer carbonate [Renvela] 800 mg PO QMEALS 11/16/17 05/25/18 gabapentin 100 mg PO TID 12/18/17 05/25/18 Previous Rx's Medication Instructions Recorded Novolog Flexpen U-100 Insulin 10 - 14 units SUB-Q AC #0 12/14/16 rosuvastatin [Crestor] 5 mg PO HS #30 tab 12/14/16 Allergies Allergy/AdvReac Type Severity Reaction Status Date / Time alprazolam [From Xanax] Allergy Severe lethargic Unverified 05/25/18 19:16 ciprofloxacin [From Cipro] Allergy Mild Skin Rash Unverified 05/25/18 19:16 pneumococcal vaccine Allergy arm swelled Unverified 05/25/18 19:16 lisinopril AdvReac Intermediate hyperkalemi Unverified 05/25/18 19:16 a General Stated Complaint: RespSymp KAREN: 3 Review of Systems <Barney Foreman DO - Last Filed: 05/26/18 09:19> Review of Systems All systems reviewed & are unremarkable except as noted in HPI and below PFSH <Barney Foreman DO - Last Filed: 05/26/18 09:19> Social History caregiver/support person: Yes household members: significant other and children housing: house number of children: 2 number of grandchildren: 3 current occupational status: disabled current occupation: was a charge nurse at [employer] and pets and animals: Yes pets and animals: dog(s), horse(s) and farm animals leisure activities: other diet: diabetic well-balanced diet: daily or most days eating out: rarely or never Smoking/Tobacco Use Status: Never History History Para 2 Hx # Term Pregnancies Multiple births Hx # Pregnancies Ectopic pregnancies AB induced Hx Number of Living Children AB spontaneous Exam <Barney Foreman DO - Last Filed: 05/26/18 09:19> Narrative Exam Narrative: 1.Const: Well-nourished, Well-developed, appearing stated age 2.Eyes: PERRL, no conjunctival injection, and symmetrical lids. 3.ENT: Atraumatic external nose and ears. Moist MM. Neck: Symmetric, trachea midline, No thyromegaly. No significant erythema in the posterior oropharynx. No evidence of tonsillar exudate. No significant cervical lymphadenitis 4.CVS: +S1/S2, No murmurs or gallops. Peripheral pulses 2+ and equal in all extremities. Brisk capillary refill in all extremities. 5.RESP: Unlabored respiratory effort. Clear to auscultation bilaterally. No significant wheezes rales or rhonchi 6.GI: Soft, Nontender/Nondistended, No hepatosplenomegaly. No guarding or rebound. Dialysis catheter is in place in the left abdomen. No redness. No tenderness, no tenderness on percussion. 7.MSK: Normocephalic/Atraumatic, Extremities w/o deformity or ttp No cyanosis or clubbing, Normal movement of all extremities 8.Skin: Warm, Dry. No rashes or lesions. 9.Neuro: ob/gyn II-XII grossly intact. Sensation grossly intact, no focal neurologic deficits. 10.Psych: (AAO) x3. Appropriate mood and affect Course <Barney Foreman DO - Last Filed: 05/26/18 09:19> Vital Signs Temperature 37.0 C 05/25/18 19:12 Pulse 79 05/25/18 19:12 Respiratory Rate 18 05/25/18 19:12 Blood Pressure 131/97 H 05/25/18 19:12 Pulse Oximetry 95 05/25/18 19:12 Temperature 37.0 C 05/25/18 19:12 Temperature Source Temporal Artery Scan 05/25/18 19:12 Pulse 79 05/25/18 19:12 Respiratory Rate 18 05/25/18 19:12 Blood Pressure 131/97 H 05/25/18 19:12 Blood Pressure Position Sitting 05/25/18 19:12 Pulse Oximetry 95 05/25/18 19:12 Oxygen Delivery Method Room Air 05/25/18 19:12 Oxygen Flow Rate 0 05/25/18 19:12 Pain Level 0 05/25/18 19:12 Lab/Test Results Lab/Test Results: 05/25/18 19:30 Blood Blood Culture - Pending 05/25/18 19:54 Nasopharynx Influenza Types A,B Antigen - Pending 05/25/18 19:42 Blood Blood Culture - Pending Sign Out <Barney Foreman DO - Last Filed: 05/26/18 09:19> Sign Out Data: Sign Out Comment: pending labs and CXR Last updated by Barney Foreman DO at 05/25/18 20:34 Post-Handoff Eval: Patient signed out to me pending labs/imaging. She had presented with flu like illness associated with significant malaise/weakness. She is a peritoneal dialysis patient who has completed her rounds daily except for today. Labs of significance is potassium of 6.5, BUN 94 and creatinine 10.5 WBC is elevated but has been in the past as well, likely related to her CLL. CXR is negative for pulmonary disease but she is noted to have free air under the diaphragm. That has been present before. I did personally exam her and the abdomen is completely soft, non-tender. She has no complaint of pain. EKG is sinus rhythm with normal QRS duration but peaked T waves. Patient treated with calcium gluconate, bicarb, albuterol and insulin/glucose. Case discussed with hospitalist and industrial hygenist at [facility]. Patient accepted in transfer. Flu swab is negative. Urine is negative. Patient is stable here. Transferred by EMS with medic.
[2018-05-25 20:05] LABS: Abs Immature Grans 0.05 k/cumm (0.0-0.09); Absolute Monocyte Count 0.97 k/cumm (0.11-0.7); Basophils % 0.2; Eosinophils % 0.1; HCT 37.1 % (36.0-46.0); HGB 12.4 g/dL (12.0-15.5); Immature Grans % 0.3; Lymphocytes % 58.4; Mean Corp. HGB Concentration 33.4 g/dL (32.0-36.0); Mean Corpuscular Hemoglobin 31.6 pg (27.0-33.0); Mean Corpuscular Volume 94.6 fL (80-95); Monocytes % 5.9; Neutrophils % 35.1; Platelet Count 102 x1000/uL (130-400); RBC 3.92 m/cumm (4.00-5.20); RBC Distribution Width 12.7 % (11.7-14.6); White Blood Cell Count 16.41 k/cumm (4.4-10.8)
[2018-05-25] MEDS: Acetaminophen 500 MG TAB (20:08)
[2018-05-25] MEDS: Normal Saline 500 ML 1000 ML IV (20:08)
--- NOTE | 2018-05-25 20:11 | ED.GENADUL_ITS ---
Discharge Plan Disposition Patient Disposition: [facility] Condition: Stable Discharge Details Chief Complaint: RespSymp Clinical Impression: Flu-like symptoms, Acute on chronic kidney failure, Acute hyperkalemia Primary Care Provider: Vickie Corey ED Provider: Ap Whitlock [place] Meds and New Rx's Prescriptions: No Action lorazepam [Ativan] 0.5 MG tablet 0.5 mg PO HS RF: 0 hydrocodone-acetaminophen [Vicodin] 1 EACH tablet 1 ea PO HS RF: 0 rolaidos 2 tab PO HS RF: 0 aspirin 81 MG tablet,delayed release (DR/EC) 81 mg PO DAILY RF: 0 Lantus Solostar U-100 Insulin 100 UNIT/1 ML insulin pen 55 unit SQ DAILY RF: 0 calcium acetate 667 MG capsule 1 tab PO AC RF: 0 acetaminophen [Tylenol] 325 MG tablet 325 mg PO PRN PRNRF: 0 polyethylene glycol 3350 17 GM powder in packet 1 packet PO DAILY RF: 0 docusate sodium [Colace] 100 MG capsule 100 mg PO DAILY RF: 0 rosuvastatin [Crestor] 5 MG tablet 5 mg PO HS Qty: 30 RF: 3 Novolog Flexpen U-100 Insulin 300 UNITS/3 ML insulin pen 10 - 14 units Sub-Q AC Qty: 0 RF: 0 metoprolol succinate 100 MG tablet extended release 24 hr 1 tab PO DAILY RF: 0 Renal Caps 1 CAP capsule 1 cap PO DAILY RF: 0 calcitriol 0.25 MCG capsule 0.25 mcg PO .MON/WED/FRI RF: 0 sevelamer carbonate [Renvela] 800 MG tablet 2 cap PO AC RF: 0 sevelamer carbonate [Renvela] 800 MG tablet 800 mg PO QMEALS RF: 0 gabapentin 100 MG capsule 100 mg PO TID RF: 0 Discharge Data Discharge Date/Time-TO BE ENTERED AT DEPARTURE: 05/25/18 22:55 Medical Decision Making <Barney Foreman DO - Last Filed: 05/26/18 09:19> This is a 63-year-old female with a past medical history of peritoneal dialysis, as well as CLL, who presents for symptoms of fatigue, cough, and congestion. Patient is febrile here in the emergency department. Lung sounds demonstrate no significant crackles but with her persistent cough and concern f or clinical pneumonia. We will evaluate for flu in spite of her influenza test secondary to her chronic immunocompromise with her dialysis CLL. We will gently rehydrate the patient due to her evidence of mild clinical dehydration. We will treat with Tylenol for her fever, and reassess. The case will be signed out to my colleague Dr. Whitlock. EKG 19: 50 Rate 78, MN 170, QTc 410, QRS 90, sinus rhythm, no significant ST elevation or depression, slight peaking of T waves in V3 and V4. No T wave inversion. No Q waves. HPI <Barney Foreman, - Last Filed: 05/26/18 09:19> General Date/Time Provider Initiated Documentation: 05/25/18 19:33 . HPI Narrative: This is a 62-year-old female with a past medical history of chronic kidney disease stage IV on home dialysis, as well as chronic lymphocytic leukemia, diabetes mellitus, and hypertension who presents today for evaluation of fatigue, cough that is nonproductive, weakness, temperature at home of 100.8. She has had a runny nose, and congestion as well. She has had her flu shot. She denies any chest pain, shortness of breath, abdominal pain, vomiting or diarrhea. She denies any headache, neck pain or neck stiffness. She denies any recent antibiotic use. She has missed a few of her episodes of dialysis today secondary to fatigue and not feeling well. Patient denies any other modifying factors. She denies any other complaints at this time. Related Data Home Medications Medication Instructions Recorded Confirmed Lantus Solostar U-100 Insulin 55 unit SQ DAILY 10/26/12 05/25/18 aspirin 81 mg PO DAILY 10/26/12 05/25/18 acetaminophen [Tylenol] 325 mg PO PRN PRN 12/15/15 05/25/18 calcium acetate 1 tab PO AC 12/15/15 05/25/18 docusate sodium [Colace] 100 mg PO DAILY 12/13/16 05/25/18 polyethylene glycol 3350 1 packet PO DAILY 12/13/16 05/25/18 Novolog Flexpen U-100 Insulin 10 - 14 units SUB-Q AC #0 12/14/16 05/25/18 rosuvastatin [Crestor] 5 mg PO HS #30 tab 12/14/16 05/25/18 Renal Caps 1 cap PO DAILY 09/12/17 05/25/18 calcitriol 0.25 mcg PO .MON/MON/Mon09/12/17 05/25/18 metoprolol succinate 1 tab PO DAILY 09/12/17 05/25/18 sevelamer carbonate [Renvela] 2 cap PO AC 09/12/17 05/25/18 Rolaidos 2 tab PO HS 11/08/17 05/25/18 hydrocodone-acetaminophen [Vicodin] 1 ea PO HS 11/08/17 05/25/18 lorazepam [Ativan] 0.5 mg PO HS 11/08/17 05/25/18 sevelamer carbonate [Renvela] 800 mg PO QMEALS 11/16/17 05/25/18 gabapentin 100 mg PO TID 12/18/17 05/25/18 Previous Rx's Medication Instructions Recorded Novolog Flexpen U-100 Insulin 10 - 14 units SUB-Q AC #0 12/14/16 rosuvastatin [Crestor] 5 mg PO HS #30 tab 12/14/16 Allergies Allergy/AdvReac Type Severity Reaction Status Date / Time alprazolam [From Xanax] Allergy Severe lethargic Unverified 05/25/18 19:16 ciprofloxacin [From Cipro] Allergy Mild Skin Rash Unverified 05/25/18 19:16 pneumococcal vaccine Allergy arm swelled Unverified 05/25/18 19:16 lisinopril AdvReac Intermediate hyperkalemi Unverified 05/25/18 19:16 a General Stated Complaint: RespSymp KAREN: 3 Review of Systems <Barney Foreman DO - Last Filed: 05/26/18 09:19> Review of Systems All systems reviewed & are unremarkable except as noted in HPI and below PFSH <Barney Foreman DO - Last Filed: 05/26/18 09:19> Social History caregiver/support person: Yes household members: significant other and children housing: house number of children: 2 number of grandchildren: 3 current occupational status: disabled current occupation: was a charge nurse at [employer] and pets and animals: Yes pets and animals: dog(s), horse(s) and farm animals leisure activities: other diet: diabetic well-balanced diet: daily or most days eating out: rarely or never Smoking/Tobacco Use Status: Never History History Para 2 Hx # Term Pregnancies Multiple births Hx # Pregnancies Ectopic pregnancies AB induced Hx Number of Living Children AB spontaneous Exam <Barney Foreman DO - Last Filed: 05/26/18 09:19> Narrative Exam Narrative: 1.Const: Well-nourished, Well-developed, appearing stated age 2.Eyes: PERRL, no conjunctival injection, and symmetrical lids. 3.ENT: Atraumatic external nose and ears. Moist MM. Neck: Symmetric, trachea midline, No thyromegaly. No significant erythema in the posterior oropharynx. No evidence of tonsillar exudate. No significant cervical lymphadenitis 4.CVS: +S1/S2, No murmurs or gallops. Peripheral pulses 2+ and equal in all extremities. Brisk capillary refill in all extremities. 5.RESP: Unlabored respiratory effort. Clear to auscultation bilaterally. No significant wheezes rales or rhonchi 6.GI: Soft, Nontender/Nondistended, No hepatosplenomegaly. No guarding or rebound. Dialysis catheter is in place in the left abdomen. No redness. No tenderness, no tenderness on percussion. 7.MSK: Normocephalic/Atraumatic, Extremities w/o deformity or ttp No cyanosis or clubbing, Normal movement of all extremities 8.Skin: Warm, Dry. No rashes or lesions. 9.Neuro: power electronics engineer II-XII grossly intact. Sensation grossly intact, no focal neurologic deficits. 10.Psych: (AAO) x3. Appropriate mood and affect Course <Barney Foreman DO - Last Filed: 05/26/18 09:19> Vital Signs Temperature 37.0 C 05/25/18 19:12 Pulse 79 05/25/18 19:12 Respiratory Rate 18 05/25/18 19:12 Blood Pressure 131/97 H 05/25/18 19:12 Pulse Oximetry 95 05/25/18 19:12 Temperature 37.0 C 05/25/18 19:12 Temperature Source Temporal Artery Scan 05/25/18 19:12 Pulse 79 05/25/18 19:12 Respiratory Rate 18 05/25/18 19:12 Blood Pressure 131/97 H 05/25/18 19:12 Blood Pressure Position Sitting 05/25/18 19:12 Pulse Oximetry 95 05/25/18 19:12 Oxygen Delivery Method Room Air 05/25/18 19:12 Oxygen Flow Rate 0 05/25/18 19:12 Pain Level 0 05/25/18 19:12 Lab/Test Results Lab/Test Results: 05/25/18 19:30 Blood Blood Culture - Pending 05/25/18 19:54 Nasopharynx Influenza Types A,B Antigen - Pending 05/25/18 19:42 Blood Blood Culture - Pending Sign Out <Barney Foreman DO - Last Filed: 05/26/18 09:19> Sign Out Data: Sign Out Comment: pending labs and CXR Last updated by Barney Foreman DO at 05/25/18 20:34 Post-Handoff Eval: Patient signed out to me pending labs/imaging. She had presented with flu like illness associated with significant malaise/weakness. She is a peritoneal dialysis patient who has completed her rounds daily except for today. Labs of significance is potassium of 6.5, BUN 94 and creatinine 10.5 WBC is elevated but has been in the past as well, likely related to her CLL. CXR is negative for pulmonary disease but she is noted to have free air under the diaphragm. That has been present before. I did personally exam her and the abdomen is completely soft, non-tender. She has no complaint of pain. EKG is sinus rhythm with normal QRS duration but peaked T waves. Patient treated with calcium gluconate, bicarb, albuterol and insulin/glucose. Case discussed with hospitalist and spray stainer at [facility]. Patient accepted in transfer. Flu swab is negative. Urine is negative. Patient is stable here. Transferred by EMS with medic.
[2018-05-25 20:24] LABS: Absolute Basophil Count 0.03 k/cumm (0.0-0.2); Absolute Eosinophil Count 0.02 k/cumm (0.0-0.7); Absolute Lymphocyte Count 9.58 k/cumm (1.2-3.4); Absolute Neutrophil Count 5.76 k/cumm (1.2-6.7); Diff Comment Agrees w/ Instrument; RBC Morphology Normal
[2018-05-25 20:27] LABS: Ammonia 17 umol/L (11-32)
[2018-05-25 20:33] LABS: ALT 28 U/L (12-78); AST 29 U/L (15-37); Albumin 2.9 g/dL (3.4-5.0); Alkaline Phosphatase 67 U/L (46-116); Anion Gap 13.7 mmol/L (3-11); Bilirubin, Total 0.3 mg/dL (0.2-1.0); CO2 25.3 mmol/L (21.0-32.0); Calcium 9.3 mg/dL (8.5-10.1); Chloride 92 mmol/L (98-107); Estimated GFR 3.73 (mL/min/1.73m2); Glucose 173 mg/dL (70-100); Sodium 131 mmol/L (136-145); Total Protein 6.7 g/dL (6.4-8.2); Troponin I 0.06 ng/mL (0.00-0.06)
[2018-05-25 20:35] LABS: BUN 94 mg/dL (7-18); CREATININE 10.48 mg/dL (0.55-1.02)
[2018-05-25 20:36] LABS: Potassium 6.5 mmol/L (3.5-5.1)
--- NOTE | 2018-05-25 21:09 | DI.VRAD_ITS ---
Addendum created by Jayesh Baker MD on 05/25/2018 9:22:11 PM EST This case was discussed personally with DR Whitlock at 9:21 PM EST on 05/25/2018. By report, the patient has a known history of free intraperitoneal air associated with a peritoneal dialysis catheter and currently has no abdominal symptoms. Initial report created on 05/25/2018 9:08:32 PM EST EXAM: XR Chest, 2 Views EXAM DATE/TIME: 05/25/2018 7:42 PM CLINICAL HISTORY: 62 years old, female; Signs and symptoms; Cough and other: Congestion; Patient HX: Cough, congestion, rule out pneumonia TECHNIQUE: XR of the chest, 2 views. COMPARISON: CR CHEST 2 VIEWS PA,LAT 12/18/2017 1:43 PM FINDINGS: Lungs: Lung summers appear clear bilaterally. Pleural space: No pleural effusion or pneumothorax is seen. Heart/Mediastinum: Heart size is normal. The mediastinal contours appear normal. Upper abdomen: There appears to be free air below the right and left hemidiaphragm. Bones/joints: Degenerative changes are noted throughout the thoracic spine with multilevel discogenic degeneration. IMPRESSION: 1. Apparent free air below the diaphragm. In the absence of recent abdominal surgery or other recent abdominal intervention, further evaluation would be recommended to exclude bowel perforation. 2. No active disease is seen in the chest. Dictated and Authenticated by: Jayesh Baker MD. Ordering:GILBERTO Corley MD
[2018-05-25] MEDS: Calcium Gluconate 4.65 MEQ/10 ML VIAL 4.65 MG IVP (21:14)
[2018-05-25] MEDS: Albuterol 2.5 MG/3 ML INH SOLN VIAL 5 MG UPD (21:15)
[2018-05-25] MEDS: Dextrose 50%-Water 25 GM/50 ML SYR IVP (21:18)
[2018-05-25] MEDS: Insulin REGULAR-Human 100 UNITS/ML UNIT IV (21:20)
[2018-05-25 21:55] LABS: Bilirubin Negative (Negative); Blood Small (Negative); Clarity Clear; Glucose 100 mg/dL (Negative); Ketones Negative (Negative); Leukocyte Esterase Negative (Negative); Nitrite Negative (Negative); Specific Gravity 1.015 (1.005-1.025); Urobilinogen 0.2 EU/dL (Up TO 0.2)
[2018-05-25 22:15] LABS: Bacteria Rare HPF (Negative); C & S Indicated? No; Casts Negative LPF (Negative); Crystals Negative HPF (Negative); Epithelial Cells Moderate HPF (Negative); Mucus Negative (Negative); Other Cells Negative (Negative); RBC 0-2 (0-2); WBC Negative HPF (0-5)
[2018-05-26 00:01] VITALS: BP 131/51; PULSE 72; PULSE 73; RESP 26; O2SAT 93
[2018-05-26 00:42] VITALS: BP 116/46; PULSE 74; RESP 19; TEMP 37; O2SAT 96
== END 2018-05-25 22:55 | disposition short-term general hospital (02) ==
PROVIDERS: Student in an Organized Health Care Education/Training Program; Emergency Provider Emergency Medicine; PCP Family Medicine
DX: N17.9 Acute kidney failure, unspecified (principal); N18.6 End stage renal disease; Z99.2 Dependence on renal dialysis; E87.5 Hyperkalemia; J11.1 Influenza due to unidentified influenza virus with other respiratory manifestations; E11.22 Type 2 diabetes mellitus with diabetic chronic kidney disease; I12.0 Hypertensive chronic kidney disease with stage 5 chronic kidney disease or end stage renal disease; C91.11 Chronic lymphocytic leukemia of B-cell type in remission; Z92.21 Personal history of antineoplastic chemotherapy
CPT/HCPCS: 36415; 36416; 51701; 80053; 82962; 87040; 87449; 93005; 94640; 96361; 96374; 96375; 99284; 71046; 81003; 81015; 82140; 84484; 85025; 93010; J0610; J7613

== ENCOUNTER 2018-06-06 21:50 | Outpatient (REF) | payer SELFPAY ==
[2018-06-06 22:24] LABS: BUN 68 mg/dL (7-18); Calcium 8.9 mg/dL (8.5-10.1); Chloride 100 mmol/L (98-107); Estimated GFR 4.75 (mL/min/1.73m2); Glucose 51 mg/dL (70-100); Potassium 4.4 mmol/L (3.5-5.1); Sodium 141 mmol/L (136-145)
== END 2018-06-06 22:10 ==
LOC: NCHCN 21:50
PROVIDERS: PCP Family Medicine; Visit Provider Family Medicine
DX: N18.6 End stage renal disease (principal)
CPT/HCPCS: 80048

== ENCOUNTER 2018-07-30 13:25 | Outpatient (CLI) | payer MEDICARE, OTHER, SELFPAY ==
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
== END 2018-07-30 13:45 ==
PROVIDERS: PCP Family Medicine; Visit Provider Family Medicine
DX: M25.512 Pain in left shoulder (principal)
CPT/HCPCS: 73030

== ENCOUNTER 2018-09-26 00:04 | Emergency (ER) | payer MEDICARE, OTHER, SELFPAY ==
[2018-09-26 00:11] VITALS: BP 148/95; PULSE 74; RESP 16; TEMP 36.7; O2SAT 98
--- NOTE | 2018-09-26 00:23 | ED.GENADUL_ITS ---
Discharge Plan Disposition Patient Disposition: HOME Condition: Improving Discharge Details Chief Complaint: Orthopedic Clinical Impression: Right sided sciatica Primary Care Provider: Vickie Corey ED Provider: Solo Reyna Home Meds and New Rx's Prescriptions: New methocarbamol 500 mg tablet 500 mg PO Q6H PRN (Reason: Back pain or spasm) Qty: 10 RF: 0 prednisone 20 mg tablet 40 mg PO DAILY 5 Days Qty: 10 RF: 0 Continued Lantus Solostar U-100 Insulin 100 unit/mL (3 mL) insulin pen 21 unit subcut BID RF: 0 lorazepam [Ativan] 0.5 MG tablet 0.5 mg PO HS RF: 0 rolaidos 2 tab PO HS RF: 0 aspirin 81 MG tablet,delayed release (DR/EC) 81 mg PO DAILY RF: 0 calcium acetate 667 MG capsule 1 tab PO AC RF: 0 acetaminophen [Tylenol] 325 MG tablet 325 mg PO PRN PRNRF: 0 polyethylene glycol 3350 17 GM powder in packet 1 packet PO DAILY RF: 0 docusate sodium [Colace] 100 MG capsule 100 mg PO DAILY RF: 0 rosuvastatin [Crestor] 5 MG tablet 5 mg PO HS Qty: 30 RF: 3 Novolog Flexpen U-100 Insulin 300 UNITS/3 ML insulin pen 10 - 14 units Sub-Q AC Qty: 0 RF: 0 metoprolol succinate 100 MG tablet extended release 24 hr 1 tab PO DAILY RF: 0 Renal Caps 1 CAP capsule 1 cap PO DAILY RF: 0 calcitriol 0.25 MCG capsule 0.25 mcg PO DAILY RF: 0 sevelamer carbonate [Renvela] 800 MG tablet 2 cap PO AC RF: 0 sevelamer carbonate [Renvela] 800 MG tablet 800 mg PO QMEALS RF: 0 gabapentin 100 MG capsule 100 mg PO TID RF: 0 Discharge Instructions Instructions: Sciatica (ED) Additional Instructions: Remove Lidoderm patch in 12 hours time. May use the prescribed methocarbamol as needed for ongoing pain. May try ice to area to reduce discomfort. Please follow-up with physical therapy as prescribed. Return for worsening discomfort or any other acute concerns Stand Alone Forms: Physical Therapy Referral Medical Decision Making 63-year-old female presents with complaint of right hip pain that began last night with a twisting motion. She is afebrile, well-appearing, tender at the right sciatic notch. Differential diagnosis includes acute right sciatica, underlying bony injury or arthritis. Patient referred for x-ray without evidence of underlying fracture. Most consistent with sciatica. Patient given Lidoderm patch. We will place her on a brief burst of oral prednisone, she may try small amount of methocarbamol at home as well. She understands homecare as well as follow-up and return precautions. HPI General Mode of arrival: ambulatory . Date/Time Provider Initiated Documentation: 09/26/18 00:07 . Limitations to Documentation: no limitations . Information obtained by: patient . History of Present Illness 63 year old F presents to the emergency department with the chief complaint of Right hip pain for 2 days, described as moderate, Quality is described as dull, and is localized to the right. Patient distal. Patient started experiencing this day(s) and it has been constant. Rest improves symptom(s), Movement worsens symptoms . Patient notes no other symptoms.; denies headaches and rash. Patient did receive the following treatments prior to arrival, heat therapy Related Data Home Medications Medication Instructions Recorded Confirmed aspirin 81 mg PO DAILY 10/26/12 09/26/18 acetaminophen [Tylenol] 325 mg PO PRN PRN 12/15/15 09/26/18 calcium acetate 1 tab PO AC 12/15/15 09/26/18 docusate sodium [Colace] 100 mg PO DAILY 12/13/16 09/26/18 polyethylene glycol 3350 1 packet PO DAILY 12/13/16 09/26/18 Novolog Flexpen U-100 Insulin 10 - 14 units SUB-Q AC #0 12/14/16 09/26/18 rosuvastatin [Crestor] 5 mg PO HS #30 tab 12/14/16 09/26/18 Renal Caps 1 cap PO DAILY 09/12/17 09/26/18 calcitriol 0.25 mcg PO DAILY 09/12/17 09/26/18 metoprolol succinate 1 tab PO DAILY 09/12/17 09/26/18 sevelamer carbonate [Renvela] 2 cap PO AC 09/12/17 09/26/18 Rolaidos 2 tab PO HS 11/08/17 09/26/18 lorazepam [Ativan] 0.5 mg PO HS 11/08/17 09/26/18 sevelamer carbonate [Renvela] 800 mg PO QMEALS 11/16/17 09/26/18 gabapentin 100 mg PO TID 12/18/17 09/26/18 insulin glargine (U-100) 100 21 unit SUBCUT BID ml 06/22/18 09/26/18 unit/mL (3 mL) subcutaneous pen methocarbamol 500 mg PO Q6H PRN #10 tab 09/26/18 prednisone 40 mg PO DAILY 5 Days #10 tab 09/26/18 Previous Rx's Medication Instructions Recorded Novolog Flexpen U-100 Insulin 10 - 14 units SUB-Q AC #0 12/14/16 rosuvastatin [Crestor] 5 mg PO HS #30 tab 12/14/16 methocarbamol 500 mg PO Q6H PRN #10 tab 09/26/18 prednisone 40 mg PO DAILY 5 Days #10 tab 09/26/18 Allergies Allergy/AdvReac Type Severity Reaction Status Date / Time alprazolam [From Xanax] Allergy Severe lethargic Unverified 05/25/18 19:16 ciprofloxacin [From Cipro] Allergy Mild Skin Rash Unverified 05/25/18 19:16 pneumococcal vaccine Allergy arm swelled Unverified 05/25/18 19:16 lisinopril AdvReac Intermediate hyperkalemi Unverified 05/25/18 19:16 a General Stated Complaint: Orthopedic KAREN: 4 Review of Systems Review of Systems No change to ability to walk, no motor weakness, no numbness or tingling. No fall or injury. 6 systems reviewed and otherwise negative [facility] Medical History Peritoneal dialysis status (Acute) Palliative care patient (Acute) Adjustment disorder (Acute) ESRD (end stage renal disease) on dialysis (Acute) Type 2 diabetes mellitus treated with insulin (Acute) Chronic kidney disease, stage 4, severely decreased GFR Chronic lymphocytic leukemia Cystocele Diabetes Hearing deficit Hypertension Prolapse, post-hysterectomy Verruca vulgaris Surgical History section section Colonoscopy - IV Sedation Extraction of cataract Hysterectomy, Laproscopic (10/17/02) Tonsillectomy Family History Brother Hearing loss Other Diabetes Hypertension Social History Smoking/Tobacco Use Status: Never Alcohol Intake: never Drug use: Never Substance use type: does not use Caregiver/Support person: Yes Household members: significant other and children Housing: house Number of Children: 2 number of grandchildren: 3 current occupation: was a charge nurse at [employer] Pets and animals: Yes Pets and animals: dog(s), horse(s) and farm animals What type of physical activity do you participate in: restricted ROM & activity Do you feel safe in your relationship?: Yes History History Para 2 Hx # Term Pregnancies Multiple births Hx # Pregnancies Ectopic pregnancies AB induced Hx Number of Living Children AB spontaneous Exam Narrative Exam Narrative: GEN: awake, alert, oriented 3. Pleasant, well groomed, interactive. HEAD: Normocephalic, atraumatic ENT: Mucous membranes moist, oropharynx unremarkable, External ear exam unremarkable EYES: PERRL, EOMI NECK: Full ROM, no ANJUM, no menigismus CHEST/RESP: Nontender, clear to auscultation bilateral, no wheeze/rhonchi/rales CARDIOVASCULAR: RRR, no murmur, rub andrea. 2+ Rad pulse bilateral ABDOMEN: Soft, nontender EXT: Full ROM, no edema, no rash. Tender right sciatic notch and hip to palpation. No tenderness with internal or external rotation. Motor 5 out of 5 throughout the lower extremity and sensation intact throughout including saddle distribution. Neuro: Grossly normal neurologic exam, conversant, interactive. Psych: Speech fluent, thoughts congruent, affect normal Course Vital Signs Temperature 36.7 C 09/26/18 00:11 Pulse 74 09/26/18 00:11 Respiratory Rate 16 09/26/18 00:11 Blood Pressure 148/95 H 09/26/18 00:11 Pulse Oximetry 98 09/26/18 00:11 Temperature 36.7 C 09/26/18 00:11 Temperature Source Temporal Artery Scan 09/26/18 00:11 Pulse 74 09/26/18 00:11 Respiratory Rate 16 09/26/18 00:11 Blood Pressure 148/95 H 09/26/18 00:11 Pulse Oximetry 98 09/26/18 00:11 Oxygen Delivery Method Room Air 09/26/18 00:11 Oxygen Flow Rate 0 09/26/18 00:11 Pain Level 10 09/26/18 00:11
--- NOTE | 2018-09-26 00:55 | DI.RAD_ITS ---
SYMPTOM/DIAGNOSIS: RT HIP PAIN RIGHT HIP AND PELVIS: No acute fracture or dislocation is seen. Osseous structures are normally mineralized. No radiopaque foreign bodies are seen in the soft tissues. Vascular calcifications are present. IMPRESSION: No acute abnormality.
[2018-09-26] MEDS: Lidocaine 5% Patch 1 PATCH (01:06)
[2018-09-26] MEDS: predniSONE 20 MG TAB 40 MG PO (01:06)
[2018-09-26] MEDS: Methocarbamol 750 MG TAB PO (01:08)
[2018-09-26 01:12] VITALS: BP 151/47; PULSE 68; O2SAT 96
--- NOTE | 2018-09-26 01:17 | DI.VRAD_ITS ---
EXAM: XR Right Hip with Pelvis when Performed, 2 or 3 Views EXAM DATE/TIME: 09/26/2018 12:22 AM CLINICAL HISTORY: 63 years old, female; Right hip; Patient HX: R hip pain, unable to straighten leg TECHNIQUE: Imaging protocol: XR Right hip with pelvis when performed, 2 or 3 views COMPARISON: CT ABD PELVIS WO CONTRAST 12/13/2017 10:43 PM FINDINGS: Bones/joints: Typical for age. Mild degenerative changes. No evidence of acute fracture. Soft tissues: Unremarkable. IMPRESSION: No acute findings. Dictated and Authenticated by: Tam Phan MD. Ordering:CALDERON Banda MD
== END 2018-09-26 01:35 | disposition home or self-care (01) ==
PROVIDERS: Emergency Provider Emergency Medicine; PCP Family Medicine
DX: M54.31 Sciatica, right side (principal); I12.9 Hypertensive chronic kidney disease with stage 1 through stage 4 chronic kidney disease, or unspecified chronic kidney disease; N18.4 Chronic kidney disease, stage 4 (severe); E11.9 Type 2 diabetes mellitus without complications; Z79.4 Long term (current) use of insulin
CPT/HCPCS: 99283; 73502; J7512

== ENCOUNTER 2018-10-01 09:50 | Outpatient (REF) | payer MEDICARE, OTHER, SELFPAY ==
--- NOTE | 2018-10-01 09:10 | SKI_PTH ---
PATIENT: YULIANA ORTIZ LOC: [facility] U#:[id number] AGE/SX: 63/F ROOM: RE10/01/[address]: VISHAL Grant : [id number] BED: DIS: 10/01/2018 SPEC #: [id number] RECD: 10/01/18 17:58 STATUS: JUSTIN LUO #: [id number] GABRIELLE: 10/01/18 09:[address]: Paulo Schwab DEPT: Surgical Specimen RECD BY: Adela Lopez ENTERED: 10/01/18 17:58 SP TYPE: BIN PAUL DR: Vickie Corey Tissues: 1 - SKIN BIOPSY(SHAVE/PUNCH) 2 - SKIN BIOPSY(SHAVE/PUNCH) Procedures: SKIN LEVEL 4 Comments: [id number]
== END 2018-10-01 10:10 ==
LOC: LBN 09:50
PROVIDERS: PCP Family Medicine; Visit Provider Physician Assistant
DX: B07.9 Viral wart, unspecified (principal)
CPT/HCPCS: 88305

== ENCOUNTER 2018-11-21 08:48 | Emergency (ER) | payer MEDICARE, OTHER, SELFPAY ==
[2018-11-21] VITALS (18 sets, daily range): BP systolic 89–149; BP diastolic 53–82; PULSE 60–74; RESP 18; TEMP 36.5; O2SAT 91–97
--- NOTE | 2018-11-21 09:04 | DI.RAD_ITS ---
SYMPTOM/DIAGNOSIS: ABD PAIN, CRAMPS, CONSTIPATION, PERITONEAL DIALYSIS ABDOMEN: Four views were obtained. The previously noted lower abdominal catheter is again noted. The bowel gas pattern is within normal limits. No gross free intraperitoneal air is seen. No other specific abnormality identified.
--- NOTE | 2018-11-21 09:05 | W.ED.GENAD ---
Discharge Plan Disposition Patient Disposition: HOME Condition: Improving Discharge Details Chief Complaint: Abd Prob Clinical Impression: Constipation Primary Care Provider: Vickie Corey ED Provider: Solo Reyna Home Meds and New Rx's Prescriptions: Continued Lantus Solostar U-100 Insulin 100 unit/mL (3 mL) insulin pen 33 unit subcut BID RF: 0 aspirin 81 MG tablet,delayed release (DR/EC) 81 mg PO DAILY RF: 0 polyethylene glycol 3350 17 GM powder in packet 1 packet PO BID RF: 0 docusate sodium [Colace] 100 MG capsule 100 mg PO DAILY RF: 0 rosuvastatin [Crestor] 5 MG tablet 5 mg PO HS Qty: 30 RF: 3 metoprolol succinate 100 MG tablet extended release 24 hr 1 tab PO DAILY RF: 0 Renal Caps 1 CAP capsule 1 cap PO DAILY RF: 0 calcitriol 0.25 MCG capsule 0.25 mcg PO DAILY RF: 0 sevelamer carbonate [Renvela] 800 MG tablet 2 cap PO AC RF: 0 sevelamer carbonate [Renvela] 800 MG tablet 2,400 mg PO QMEALS RF: 0 Novolog Flexpen U-100 Insulin 300 UNITS/3 ML insulin pen See Rx Instructions .ROUTE .COMPLEX RF: 0 gabapentin 100 MG capsule 100 mg PO TID RF: 0 Discharge Instructions Instructions: Constipation (ED) Additional Instructions: May trial magnesium citrate 150 cc once at bedtime tonight. May repeat today #2 if needed. Continue your regular medications. Please return if you develop persistent or recurrent abdominal pain, fever, or any other acute concerns. Medical Decision Making 63-year-old female with transient, crampy abdominal pain this morning. She has had 6 days without a bowel movement. She does perform peritoneal dialysis at home which has been proceeding without change, normal and clear fluid this morning. She has not had a fever or other symptoms. She arrives in no distress with essentially normal vital signs. Her abdomen is nontender. Referred for x-ray, with no evidence of obstruction. Patient given enema, some production of stool. No further discomfort. I do feel she is appropriate for discharge to home. Will offer magnesium citrate for home, she may continue gentle laxatives by mouth. She understands return precautions. HPI General Mode of arrival: ambulatory. Date/Time Provider Initiated Documentation: 11/21/18 08:51. Limitations to Documentation: no limitations. Information obtained by: patient. History of Present Illness 63 year old F presents to the emergency department with the chief complaint of Abdominal pain, crampy, resolved, described as moderate, Quality is described as dull, and is localized to the abdomen. Patient reports no radiation. Patient started experiencing this minute(s) and it has been now resolved. No relieving factors improve symptom(s), No exacerbating factors reported . Patient notes no other symptoms.; denies fever/chills and nausea/vomiting. Patient did receive the following treatments prior to arrival, other (MiraLAX) Related Data Home Medications Medication Instructions Recorded Confirmed aspirin 81 mg PO DAILY 10/26/12 11/21/18 docusate sodium [Colace] 100 mg PO DAILY 12/13/16 11/21/18 polyethylene glycol 3350 1 packet PO BID 12/13/16 11/21/18 rosuvastatin [Crestor] 5 mg PO HS #30 tab 12/14/16 11/21/18 Renal Caps 1 cap PO DAILY 09/12/17 11/21/18 calcitriol 0.25 mcg PO DAILY 09/12/17 11/21/18 metoprolol succinate 1 tab PO DAILY 09/12/17 11/21/18 sevelamer carbonate [Renvela] 2 cap PO AC 09/12/17 09/26/18 sevelamer carbonate [Renvela] 2,400 mg PO QMEALS 11/16/17 11/21/18 gabapentin 100 mg PO TID 12/18/17 11/21/18 insulin glargine (U-100) 100 33 unit SUBCUT BID ml 06/22/18 11/21/18 unit/mL (3 mL) subcutaneous pen Novolog Flexpen U-100 Insulin See Rx Instructions .ROUTE .COMPLEX 11/21/18 11/21/18 Previous Rx's Medication Instructions Recorded rosuvastatin [Crestor] 5 mg PO HS #30 tab 12/14/16 Allergies Allergy/AdvReac Type Severity Reaction Status Date / Time alprazolam [From Xanax] Allergy Severe lethargic Unverified 11/21/18 09:12 ciprofloxacin [From Cipro] Allergy Mild Skin Rash Unverified 11/21/18 09:12 pneumococcal vaccine Allergy arm swelled Unverified 11/21/18 09:12 lisinopril AdvReac Intermediate hyperkalemi Unverified 11/21/18 09:12 a General Stated Complaint: Abd Prob KAREN: 3 Review of Systems Review of Systems No bowel movement x6 days. 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 Pleasant, well groomed, interactive. HEAD: Normocephalic, atraumatic ENT: Mucous membranes moist, oropharynx unremarkable, External ear exam unremarkable EYES: PERRL, EOMI NECK: Full ROM, no ANJUM, no menigismus CHEST/RESP: Nontender, clear to auscultation bilateral, no wheeze/rhonchi/rales CARDIOVASCULAR: RRR, no murmur, rub andrea. 2+ Rad pulse bilateral ABDOMEN: Soft, nontender, no mass. +Bowel sounds, left-sided dialysis catheter clean dry and intact. EXT: Full ROM, no edema, no rash Neuro: Grossly normal neurologic exam, conversant, interactive. Psych: Speech fluent, thoughts congruent, affect normal Course Vital Signs Temperature 36.5 C 11/21/18 08:55 Pulse 66 11/21/18 08:55 Respiratory Rate 18 11/21/18 08:55 Blood Pressure 149/82 H 11/21/18 08:55 Pulse Oximetry 97 11/21/18 08:55 Temperature 36.5 C 11/21/18 08:55 Temperature Source Temporal Artery Scan 11/21/18 08:55 Pulse 66 11/21/18 08:55 Respiratory Rate 18 11/21/18 08:55 Respiratory Effort 11/21/18 08:55 Blood Pressure 149/82 H 11/21/18 08:55 Blood Pressure Position Sitting 11/21/18 08:55 Pulse Oximetry 97 11/21/18 08:55 Oxygen Delivery Method Room Air 11/21/18 08:55 Oxygen Flow Rate 0 11/21/18 08:55
[2018-11-21] MEDS: Magnesium Citrate 300 ML BTL PO (11:44)
== END 2018-11-21 11:55 | disposition home or self-care (01) ==
PROVIDERS: Emergency Provider Emergency Medicine; PCP Family Medicine
DX: K59.00 Constipation, unspecified (principal); E11.22 Type 2 diabetes mellitus with diabetic chronic kidney disease; N18.6 End stage renal disease; I12.0 Hypertensive chronic kidney disease with stage 5 chronic kidney disease or end stage renal disease; Z99.2 Dependence on renal dialysis; Z79.4 Long term (current) use of insulin
CPT/HCPCS: 99283; 74019

== ENCOUNTER 2018-11-30 12:48 | Outpatient (CLI) | payer MEDICARE, OTHER, SELFPAY ==
[2018-11-30 13:11] LABS: Abs Immature Grans 0.08 k/cumm (0.0-0.09); Absolute Basophil Count 0.06 k/cumm (0.0-0.2); Absolute Eosinophil Count 0.25 k/cumm (0.0-0.7); Basophils % 0.3; Eosinophils % 1.2; HCT 36.5 % (36.0-46.0); HGB 12.1 g/dL (12.0-15.5); Immature Grans % 0.4; Lymphocytes % 62.4; Mean Corp. HGB Concentration 33.2 g/dL (32.0-36.0); Mean Corpuscular Hemoglobin 31.1 pg (27.0-33.0); Mean Corpuscular Volume 93.8 fL (80-95); Mean Platelet Volume 11.7 fL (8.0-11.0); Monocytes % 4.8; Neutrophils % 30.9; Platelet Count 155 x1000/uL (130-400); RBC 3.89 m/cumm (4.00-5.20); RBC Distribution Width 12.2 % (11.7-14.6); White Blood Cell Count 21.21 k/cumm (4.4-10.8)
[2018-11-30 13:37] LABS: Absolute Lymphocyte Count 13.24 k/cumm (1.2-3.4); Absolute Monocyte Count 1.02 k/cumm (0.11-0.7); Absolute Neutrophil Count 6.55 k/cumm (1.2-6.7)
[2018-11-30 13:38] LABS: Diff Comment Diff Reviewed; RBC Morphology Normal
[2018-11-30 13:58] LABS: Albumin 2.9 g/dL (3.4-5.0); Alkaline Phosphatase 70 U/L (46-116); Anion Gap 12.3 mmol/L (3-11); BUN 63 mg/dL (7-18); Bilirubin, Total 0.3 mg/dL (0.2-1.0); CO2 27.7 mmol/L (21.0-32.0); Calcium 9.3 mg/dL (8.5-10.1); Chloride 100 mmol/L (98-107); Estimated GFR 4.55 (mL/min/1.73m2); Glucose 167 mg/dL (70-100); Potassium 4.3 mmol/L (3.5-5.1); Sodium 140 mmol/L (136-145); Total Protein 5.9 g/dL (6.4-8.2)
[2018-11-30 14:56] LABS: CREATININE 8.81 mg/dL (0.55-1.02)
[2018-11-30 15:31] LABS: ALT 14 U/L (12-78); AST 26 U/L (15-37)
== END 2018-11-30 13:08 ==
PROVIDERS: PCP Family Medicine
DX: C91.90 Lymphoid leukemia, unspecified not having achieved remission (principal)
CPT/HCPCS: 36415; 80053; 85025

== ENCOUNTER 2019-01-19 20:58 | Emergency (ER) | payer MEDICARE, OTHER, SELFPAY ==
[2019-01-19] VITALS (15 sets, daily range): BP systolic 134–163; BP diastolic 59–79; PULSE 82–89; RESP 16–22; TEMP 37.2–38.8; O2SAT 87–97
--- NOTE | 2019-01-19 21:31 | W.ED.GENAD ---
Discharge Plan Disposition Patient Disposition: [facility] Condition: Stable Discharge Details Chief Complaint: GenMedical Clinical Impression: Peritonitis associated with peritoneal dialysis Primary Care Provider: Vickie Corey ED Provider: Ap Whitlock [place] [facility] and New Rx's Prescriptions: No Action Lantus Solostar U-100 Insulin 100 unit/mL (3 mL) insulin pen 33 unit subcut BID RF: 0 aspirin 81 MG tablet,delayed release (DR/EC) 81 mg PO DAILY RF: 0 polyethylene glycol 3350 17 GM powder in packet 1 packet PO BID RF: 0 docusate sodium [Colace] 100 MG capsule 100 mg PO DAILY RF: 0 rosuvastatin [Crestor] 5 MG tablet 5 mg PO HS Qty: 30 RF: 3 metoprolol succinate 100 MG tablet extended release 24 hr 1 tab PO DAILY RF: 0 Renal Caps 1 CAP capsule 1 cap PO DAILY RF: 0 calcitriol 0.25 MCG capsule 0.25 mcg PO DAILY RF: 0 sevelamer carbonate [Renvela] 800 MG tablet 2 cap PO AC RF: 0 sevelamer carbonate [Renvela] 800 MG tablet 2,400 mg PO QMEALS RF: 0 Novolog Flexpen U-100 Insulin 300 UNITS/3 ML insulin pen See Rx Instructions .ROUTE .COMPLEX RF: 0 gabapentin 100 MG capsule 100 mg PO TID RF: 0 Medical Decision Making Patient is presenting with probable recurrent peritonitis related to peritoneal dialysis. She is hemodynamically stable and afebrile. IV is established and laboratory studies obtained. Peritoneal fluid obtained and sent to lab. Subsequently, patient spiked a temperature to 102.1. She was given Tylenol for this. Her CBC shows a white count elevated to 24,000. However, she always has elevated white count and has history of CLL. Her BMP shows a BUN and creatinine which are elevated but baseline. Potassium is normal at 5. Cell count on the fluid is 6000. Gram stain shows white cells but no bacteria. I have placed a call to [facility]. Patient is discussed with hospitalist and with food service cashier at [facility]. Patient will be started on Zosyn and vancomycin IV. She is accepted for admission at [facility] for further evaluation and management. She will need to go by ambulance as we will get Zosyn in but send her down with the vancomycin running. She has been hemodynamically stable here. She does not appear toxic but she does appear ill. She has a fluid culture pending. Medical Records Medical records reviewed: Yes I reviewed the patient's medical records. Lab Data Lab results reviewed: Yes I reviewed the patient's lab results. HPI General Mode of arrival: ambulatory. Date/Time Provider Initiated Documentation: 01/19/19 21:19. Limitations to Documentation: no limitations. Information obtained by: patient, family and old records reviewed. HPI Narrative: Patient presents to ED with cloudy dialysis fluid, abdominal pain and vomiting. Patient was treated for peritonitis for 2 weeks with medicated peritoneal dialysate fluid. She just finished this on Monday of last week. She was doing well until today. She noted that with her third and fourth exchange the fluid was cloudy. She was starting to develop some discomfort. She spoke to nephrology at [facility] who asked her to bring a fluid sample to the hospital. They told her if she developed fever vomiting or pain to come to the ED. She did not even make it to [facility] because she started to have emesis and increasing pain. She came here for evaluation. Related Data Home Medications Medication Instructions Recorded Confirmed aspirin 81 mg PO DAILY 10/26/12 01/19/19 docusate sodium [Colace] 100 mg PO DAILY 12/13/16 01/19/19 polyethylene glycol 3350 1 packet PO BID 12/13/16 01/19/19 rosuvastatin [Crestor] 5 mg PO HS #30 tab 12/14/16 01/19/19 Renal Caps 1 cap PO DAILY 09/12/17 01/19/19 calcitriol 0.25 mcg PO DAILY 09/12/17 01/19/19 metoprolol succinate 1 tab PO DAILY 09/12/17 01/19/19 sevelamer carbonate [Renvela] 2 cap PO AC 09/12/17 01/19/19 sevelamer carbonate [Renvela] 2,400 mg PO QMEALS 11/16/17 01/19/19 gabapentin 100 mg PO TID 12/18/17 01/19/19 insulin glargine 100 unit/mL (3 33 unit SUBCUT BID ml 06/22/18 01/19/19 mL) subcutaneous pen Novolog Flexpen U-100 Insulin See Rx Instructions .ROUTE .COMPLEX 11/21/18 01/19/19 Previous Rx's Medication Instructions Recorded rosuvastatin [Crestor] 5 mg PO HS #30 tab 12/14/16 Allergies Allergy/AdvReac Type Severity Reaction Status Date / Time alprazolam [From Xanax] Allergy Severe lethargic Unverified 01/19/19 21:13 ciprofloxacin [From Cipro] Allergy Mild Skin Rash Unverified 01/19/19 21:13 pneumococcal vaccine Allergy arm swelled Unverified 01/19/19 21:13 lisinopril AdvReac Intermediate hyperkalemi Unverified 01/19/19 21:13 a General Stated Complaint: GenMedical KAREN: 2 Review of Systems Review of Systems 03/11 Review of Systems completed and is negative except as stated above in HPI (Systems reviewed: Const, Eyes, ENT, Resp, CV, GI, , MSK, Skin, Neuro) [facility] Medical History Adjustment disorder (Acute) Chronic kidney disease, stage 4, severely decreased GFR Chronic lymphocytic leukemia Cystocele ESRD (end stage renal disease) on dialysis (Acute) Hearing deficit Hyperlipidemia (Acute 05/05/14) Hypertension Palliative care patient (Acute) Peritoneal dialysis status (Acute) Prolapse, post-hysterectomy Type 2 diabetes mellitus treated with insulin (Acute) Verruca vulgaris Surgical History section Colonoscopy - IV Sedation Extraction of cataract Hysterectomy, Laproscopic (10/17/02) Tonsillectomy Social History Smoking/Tobacco Use Status: Never Alcohol Intake: never Drug use: Never Substance use type: does not use Caregiver/Support person: Yes Household members: significant other and children Housing: house Number of Children: 2 number of grandchildren: 3 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 Hypertensive but otherwise normal vitals and pulse ox. Const: WDWN female in NAD. HEENT: NC/AT. Normal facial exam. Eyes: Normal conjunctiva and sclera. Neck: Supple. Trachea midline. Lungs: Normal respiratory effort. Lungs are clear. Cor: RRR without murmur/gallop. Good radial pulses. GI: Soft. Mild diffuse tenderness. Neuro: A+O x 3. CN grossly in tact. Good strength and no focal deficit. Ext: No C/C/E. No deformity or tenderness. Skin: Warm and dry without rash. Course Vital Signs Temperature 99 F 01/19/19 21:10 Pulse 87 01/19/19 21:10 Respiratory Rate 22 01/19/19 21:10 Blood Pressure 163/79 H 01/19/19 21:10 Pulse Oximetry 96 01/19/19 21:10 Temperature 99 F 01/19/19 21:10 Temperature Source Temporal Artery Scan 01/19/19 21:10 Pulse 87 01/19/19 21:10 Respiratory Rate 22 01/19/19 21:10 Respiratory Effort 01/19/19 21:18 Blood Pressure 163/79 H 01/19/19 21:10 Blood Pressure Position Sitting 01/19/19 21:10 Pulse Oximetry 96 01/19/19 21:10 Oxygen Delivery Method Room Air 01/19/19 21:10 Oxygen Flow Rate 0 01/19/19 21:10
[2019-01-19] MEDS: Ondansetron 4 MG/2 ML VIAL IVP (21:48)
[2019-01-19 21:53] LABS: Abs Immature Grans 0.09 k/cumm (0.0-0.09); HCT 35.4 % (36.0-46.0); HGB 11.7 g/dL (12.0-15.5); Mean Corp. HGB Concentration 33.1 g/dL (32.0-36.0); Mean Corpuscular Hemoglobin 32.1 pg (27.0-33.0); Mean Corpuscular Volume 97.3 fL (80-95); Mean Platelet Volume 11.6 fL (8.0-11.0); Platelet Count 161 x1000/uL (130-400); RBC 3.64 m/cumm (4.00-5.20); RBC Distribution Width 13.3 % (11.7-14.6); White Blood Cell Count 24.03 k/cumm (4.4-10.8)
[2019-01-19 22:01] LABS: Anion Gap 11.6 mmol/L (3-11); BUN 68 mg/dL (7-18); CO2 27.4 mmol/L (21.0-32.0); Chloride 99 mmol/L (98-107); Estimated GFR 4.88 (mL/min/1.73m2); Glucose 175 mg/dL (70-100); Magnesium 1.7 mg/dL (1.8-2.4); Sodium 138 mmol/L (136-145)
[2019-01-19 22:03] LABS: CREATININE 8.28 mg/dL (0.55-1.02)
[2019-01-19] MEDS: Acetaminophen 325 MG TAB 650 MG PO (22:14)
[2019-01-19 22:15] LABS: Absolute Lymphocyte Count 12.02 k/cumm (1.2-3.4); Absolute Neutrophil Count 10.81 k/cumm (1.2-6.7)
[2019-01-19 22:16] LABS: Absolute Eosinophil Count 0.24 k/cumm (0.0-0.7); Absolute Monocyte Count 0.48 k/cumm (0.11-0.7); Atypical Lymphocytes % 0; RBC Morphology Normal
[2019-01-19 22:44] LABS: Source PERITONEAL
[2019-01-19 22:45] LABS: Clarity CLOUDY
[2019-01-19 22:46] LABS: Mononuclear Cells 21 % (0-0); Nucleated Cells 6001 /MM3 (0-0); Polynuclear Cells 79 % (0-0)
[2019-01-20] MEDS: PIPERACILLIN/TAZO 2.25 GM in Normal Saline 50 ML IVPB (00:47)
[2019-01-20] MEDS: VANCOMYCIN 1,250 MG in Normal Saline 250 ML 166.6666 MG IVPB (01:18)
[2019-01-20 01:21] VITALS: BP 130/98; PULSE 66; RESP 18; O2SAT 90
[2019-01-20] MEDS: diphenhydrAMINE 50 MG/ML VIAL 12.5 MG IVP (01:32)
== END 2019-01-20 01:40 | disposition short-term general hospital (02) ==
PROVIDERS: Emergency Provider Emergency Medicine; PCP Family Medicine
DX: K65.0 Generalized (acute) peritonitis (principal); R50.9 Fever, unspecified; I12.0 Hypertensive chronic kidney disease with stage 5 chronic kidney disease or end stage renal disease; N18.6 End stage renal disease; Z99.2 Dependence on renal dialysis; Z85.6 Personal history of leukemia; E11.22 Type 2 diabetes mellitus with diabetic chronic kidney disease; Z79.4 Long term (current) use of insulin
CPT/HCPCS: 36415; 80048; 87077; 89051; 96365; 96375; 99285; 83735; 85025; 87070; 87186; 87205; J1200; J2405; J2543

== ENCOUNTER 2019-01-23 10:51 | Emergency (ER) | payer MEDICARE, OTHER, SELFPAY ==
[2019-01-23] VITALS (44 sets, daily range): BP systolic 137–163; BP diastolic 64–73; PULSE 79–89; RESP 18–33; TEMP 36.5; O2SAT 88–98
[2019-01-23 11:32] LABS: Lactate 2.2 mmol/L (0.6-1.4)
[2019-01-23 11:38] LABS: Abs Immature Grans 0.14 k/cumm (0.0-0.09); HCT 36.1 % (36.0-46.0); HGB 11.6 g/dL (12.0-15.5); Mean Corp. HGB Concentration 32.1 g/dL (32.0-36.0); Mean Corpuscular Hemoglobin 31.6 pg (27.0-33.0); Mean Corpuscular Volume 98.4 fL (80-95); Mean Platelet Volume 11.8 fL (8.0-11.0); Platelet Count 194 x1000/uL (130-400); RBC 3.67 m/cumm (4.00-5.20); RBC Distribution Width 13.2 % (11.7-14.6); White Blood Cell Count 23.11 k/cumm (4.4-10.8)
--- NOTE | 2019-01-23 11:41 | W.ED.GENAD ---
Discharge Plan Disposition Patient Disposition: [facility] Condition: Stable Discharge Details Chief Complaint: GenMedical Clinical Impression: Pneumonia, Non-ST elevation GA (NSTEMI), Acute confusion Primary Care Provider: Vickie Corey ED Provider: Barney Foreman Home Meds and New Rx's Prescriptions: No Action Lantus Solostar U-100 Insulin 100 unit/mL (3 mL) insulin pen 33 unit subcut BID RF: 0 aspirin 81 MG tablet,delayed release (DR/EC) 81 mg PO DAILY RF: 0 polyethylene glycol 3350 17 GM powder in packet 1 packet PO BID RF: 0 docusate sodium [Colace] 100 MG capsule 100 mg PO DAILY RF: 0 rosuvastatin [Crestor] 5 MG tablet 10 mg PO HS Qty: 30 RF: 3 metoprolol succinate 100 MG tablet extended release 24 hr 1 tab PO DAILY RF: 0 calcitriol 0.25 MCG capsule 0.25 mcg PO DAILY RF: 0 sevelamer carbonate [Renvela] 800 MG tablet 2,400 mg PO QMEALS RF: 0 Novolog Flexpen U-100 Insulin 300 UNITS/3 ML insulin pen See Rx Instructions .ROUTE .COMPLEX RF: 0 gabapentin 100 MG capsule 100 mg PO TID RF: 0 polyethylene glycol 3350 [Miralax] 17 gram Powder In Packet 17 g PO DAILY RF: 0 Discharge Data Discharge Date/Time-TO BE ENTERED AT DEPARTURE: 01/23/19 16:13 Medical Decision Making This is a 63-year-old female with a past medical history of high cholesterol, diabetes, end-stage renal disease on peritoneal dialysis, hypertension, chronic lymphocytic leukemia, who presents today for evaluation of altered mental status. She was recently admitted to [facility] for suspected bacterial peritonitis, on 4 days of peritoneal antibiotics, and eventually discharged 24 hours ago with expectant peritoneal antibiotics for the next 14 days. She was doing well for the first 24 hours at home, however this morning the care provider noted extreme alteration of mental status, she was unable to do her dialysis on her own, and she began complaining of abdominal pain again. No other complaints of vomiting diarrhea or other abnormalities. Vital signs on arrival demonstrate oxygen 89% on room air, mild tachypnea. EKG demonstrates nonspecific ST depressions in lateral leads, no evidence of STEMI. Abdominal exam is notably tender on palpation. No distention. Differential includes bacterial peritonitis, stroke, electrolyte abnormality or encephalopathy secondary to elevated ammonia. We will further evaluate, start cefepime for antibiotic coverage as a precaution for potential continued bacterial peritonitis, reevaluate and reassess. 1:51 PM Laboratory work-up has returned, white count is 23 but stable in comparison with prior labs. Hemoglobin stable, platelets normal, mild left shift. Renal function at baseline, lactate elevated at 2.2, troponin I 0.29 which is certainly not her baseline. TSH elevated at 4, urinalysis negative for infection. Peritoneal fluid demonstrates WBC count of 11, notably reduced from the 6000 that she was when she was here initially. Culture sent for blood and peritoneal fluid. Because of the elevated troponin, heparinization has been started. No evidence of STEMI on EKG. Cefepime has been continued. Radiology reports no acute process in the head, no evidence of pulmonary embolism. There is evidence of mild pleural effusion and infiltrate. No acute process in the abdomen per radiology. Contacted [facility] and discussed the case with Dr. Rose Pascual, she and her team agree with the current assessment and plan. Recommend transfer. Do not recommend any additional antibiotics at this time. I have extensively reviewed the treatment plan with the patient. I have addressed all patient concerns at this time. I have also discussed the plan with the admitting physician and they agree with the current assessment and plan and have agreed to assume responsibility for the patient. All parties demonstrate verbal understanding and agreement with our assessment and plan at this time. At time of transfer the patient was reassessed and continued to demonstrate current medical stability. No signs of acute respiratory distress requiring intubation, hemodynamic instability requiring pressor support, or rapidly declining mental status. The patient is stable for transport. EKG 11: 15 Rate 82, intervals normal, sinus rhythm, nonspecific ST depression less than 1 mm in V4 V5 V6, no Q waves, no significant ST elevation. No evidence of STEMI HPI General Date/Time Provider Initiated Documentation: 01/23/19 10:52. HPI Narrative: This is a 63-year-old female with a past medical history of high cholesterol, diabetes, end-stage renal disease on peritoneal dialysis, hypertension, chronic lymphocytic leukemia, who presents today for evaluation of altered mental status. Patient was recently seen and assessed here in the emergency department on 01/19/2019, diagnosed with suspected bacterial peritonitis, started on empiric antibiotics, did demonstrate evidence of an allergic reaction albeit mild to vancomycin. Transferred to [facility] for further management. While at [facility] she was continued on antibiotics with cefazolin/ceftazidime, eventually discharged 3 to 4 days later which was 24 hours ago, with an expected course of 14 days of peritoneal antibiotics. Today the patient's caregiver noted that she was significantly confused, unable to perform her dialysis, and so she was brought to the ER for further evaluation. She is also been complaining of abdominal pain throughout the day. She denies any vomiting, diarrhea, hematochezia, melena, acholic stool, headache or chest pain. History is otherwise notably limited secondary to the patient's current mental status. No other modifying factors. No other additional components. Related Data Home Medications Medication Instructions Recorded Confirmed aspirin 81 mg PO DAILY 10/26/12 01/23/19 docusate sodium [Colace] 100 mg PO DAILY 12/13/16 01/19/19 polyethylene glycol 3350 1 packet PO BID 12/13/16 01/23/19 rosuvastatin [Crestor] 10 mg PO HS #30 tab 12/14/16 01/23/19 calcitriol 0.25 mcg PO DAILY 09/12/17 01/23/19 metoprolol succinate 1 tab PO DAILY 09/12/17 01/23/19 sevelamer carbonate [Renvela] 2,400 mg PO QMEALS 11/16/17 01/19/19 gabapentin 100 mg PO TID 12/18/17 01/23/19 insulin glargine 100 unit/mL (3 33 unit SUBCUT BID ml 06/22/18 01/19/19 mL) subcutaneous pen Novolog Flexpen U-100 Insulin See Rx Instructions .ROUTE .COMPLEX 11/21/18 01/23/19 polyethylene glycol 3350 [Miralax] 17 g PO DAILY 01/23/19 01/23/19 Previous Rx's Medication Instructions Recorded rosuvastatin [Crestor] 10 mg PO HS #30 tab 12/14/16 Allergies Allergy/AdvReac Type Severity Reaction Status Date / Time alprazolam [From Xanax] Allergy Severe lethargic Unverified 01/23/19 11:09 vancomycin Allergy Intermediate localized Verified 01/23/19 11:09 itching/hives in arm where IV Vanco infusing ciprofloxacin [From Cipro] Allergy Mild Skin Rash Unverified 01/23/19 11:09 pneumococcal vaccine Allergy arm swelled Unverified 01/23/19 11:09 lisinopril AdvReac Intermediate hyperkalemi Unverified 01/23/19 11:09 a General Stated Complaint: GenMedical KAREN: 2 Review of Systems Review of Systems All systems reviewed & are unremarkable except as noted in HPI and below PFSH Social History Smoking/Tobacco Use Status: Never Alcohol Intake: never Drug use: Never Substance use type: does not use Caregiver/Support person: Yes Household members: significant other and children Housing: house Number of Children: 2 number of grandchildren: 3 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 3.ENT: Atraumatic external nose and ears. Moist MM. Neck: Symmetric, trachea midline, No thyromegaly. 4.CVS: +S1/S2, No murmurs or gallops. Peripheral pulses 2+ and equal in all extremities. Brisk capillary refill in all extremities. 5.RESP: Unlabored respiratory effort. Clear to auscultation bilaterally. No wheezes rales or rhonchi 6.GI: Soft, Nondistended, No hepatosplenomegaly. Mild tenderness throughout. Peritoneal dialysis catheters are in place, no surrounding erythema. 7.MSK: Normocephalic/Atraumatic, Extremities w/o deformity or ttp No cyanosis or clubbing, Normal movement of all extremities 8.Skin: Warm, Dry. No rashes or lesions. 9.Neuro: wildlife control agent II-XII grossly intact. Sensation grossly intact, no focal neurologic deficits. 10.Psych: (AAO) x3. However mentation appears notably slow. Family was at bedside states that she is not at her baseline whatsoever. GCS of 15 Course Vital Signs Temperature 36.5 C 01/23/19 11:03 Pulse 88 01/23/19 11:03 Respiratory Rate 26 H 01/23/19 11:03 Pulse Oximetry 89 L 01/23/19 11:03 Temperature 36.5 C 01/23/19 11:03 Temperature Source Skin 01/23/19 11:03 Pulse 88 01/23/19 11:03 Respiratory Rate 26 H 01/23/19 11:03 Respiratory Effort Non-Labored 01/23/19 11:08 Blood Pressure Position Sitting 01/23/19 11:03 Pulse Oximetry 89 L 01/23/19 11:03 Oxygen Delivery Method Room Air 01/23/19 11:03 Oxygen Flow Rate 0 01/23/19 11:03 Lab/Test Results Lab/Test Results: 01/23/19 11:22 Blood Blood Culture - Pending 01/23/19 11:12 Blood Blood Culture - Pending Laboratory Tests Range/Units 01/23/19 11:22 Lactate (0.6-1.4) mmol/L 2.2 H*
--- NOTE | 2019-01-23 11:42 | DI.CT_ITS ---
SYMPTOMS/DIAGNOSIS: CONFUSED, ALTERED CT BRAIN: Noncontrast. Comparison is 02/12/18. The ventricles and sulci are consistent with the patient's age. There are areas of decreased attenuation in the white matter consistent with small vessel ischemic disease. Dystrophic calcifications are again seen in the basal ganglia. No acute intracranial hemorrhage, acute territorial infarct, midline shift or mass effect is identified. The calvarium is intact. IMPRESSION: No acute intracranial process.
[2019-01-23 11:48] LABS: PTT Activated 24.4 sec (21.0-31.4); Prothrombin Time 9.5 sec (9.3-11.0)
[2019-01-23 11:52] LABS: Ammonia 10 umol/L (11-32)
[2019-01-23 12:02] LABS: ALT 15 U/L (14-59); AST 26 U/L (15-37); Albumin 2.8 g/dL (3.4-5.0); Alkaline Phosphatase 82 U/L (46-116); Anion Gap 12.9 mmol/L (3-11); BUN 63 mg/dL (7-18); Bilirubin, Total 0.3 mg/dL (0.2-1.0); CO2 29.1 mmol/L (21.0-32.0); Calcium 9.4 mg/dL (8.5-10.1); Chloride 94 mmol/L (98-107); Estimated GFR 4.85 (mL/min/1.73m2); Glucose 188 mg/dL (70-100); Potassium 4.7 mmol/L (3.5-5.1); Sodium 136 mmol/L (136-145); TSH (W/Ref FT4) 4.08 uIU/mL (0.36-3.74); Total Protein 7.4 g/dL (6.4-8.2)
[2019-01-23 12:04] LABS: CREATININE 8.33 mg/dL (0.55-1.02)
[2019-01-23] MEDS: CEFEPIME 2 GM in Normal Saline 100 ML IVPB (12:04)
--- NOTE | 2019-01-23 12:06 | DI.CT_ITS ---
SYMPTOMS/DIAGNOSIS: ABD PAIN, PERITONEAL DIALYSIS, HYPOXIA, CANCER, COUGH CT ANGIOGRAPHY OF THE CHEST: CT angiography was performed with multi slice acquisition and multi planar and 3D reconstruction. There is no evidence of a pulmonary embolus. The thoracic aorta shows no evidence of dissection or aneurysm. The heart size is within normal limits. No significant pericardial effusion is seen. Coronary artery calcifications are present. Mildly enlarged lymph nodes are seen in the mediastinum. Small to moderate sized bilateral pleural effusions are present left greater than right. Subjacent infiltrates are seen in the lung bases. This may represent atelectasis or pneumonia. Nonspecific ground glass opacities are seen in the lungs. The tracheobronchial tree is unremarkable. No pneumothorax is identified. Degenerative changes are present in the spine. IMPRESSION: 1. No evidence of a pulmonary embolus, thoracic aortic aneurysm or dissection. 2. Small to moderate sized bilateral effusions and subjacent infiltrates which may represent atelectasis or pneumonia. CT SCAN OF THE ABDOMEN AND PELVIS: There is patient motion artifact present. No evidence of a hepatic mass is seen. The gallbladder is negative. There is no biliary ductal dilatation. The portal, superior mesenteric and splenic veins are patent. The pancreas is unremarkable. No acute abnormality is seen of the spleen. There is again seen calcification of the splenic capsule. There are stable adrenal nodules. The kidneys show normal and symmetric enhancement. There are bilateral renal cysts. The largest is seen in the right kidney and measures 3.3 cm. No evidence of ureteral obstruction is seen. The is a Kaiser catheter in the urinary bladder which is intact. The patient appears to be status post hysterectomy. The abdominal aorta is of normal caliber with atherosclerosis. No aneurysmal dilatation is present. No significant abdominal or pelvic adenopathy is appreciated. There is a moderate amount of fluid in the abdomen and pelvis. This likely reflects dialysate as the patient is on peritoneal dialysis. There is a peritoneal dialysis catheter seen in the left lower quadrant. There is a moderate amount of stool throughout the colon. This may represent constipation. No evidence of bowel obstruction or bowel inflammatory process is seen. No right lower quadrant inflammatory process is seen to suggest an acute appendicitis. Degenerative changes are seen throughout the spine. IMPRESSION: 1. Peritoneal dialysis catheter seen in the left lower quadrant. Fluid in the abdomen and pelvis likely reflecting the patient's dialysate. 2. No findings to suggest an acute abdomen. 3. Moderate amount of retained stool in the colon suggesting constipation. 4. Incidental findings seen in the abdomen and pelvis as described above. The findings were discussed with the emergency department on the date of the examination.
[2019-01-23 12:19] LABS: Troponin I 1.29 ng/mL (0.00-0.06)
[2019-01-23 12:27] LABS: Absolute Monocyte Count 2.08 k/cumm (0.11-0.7)
[2019-01-23 12:28] LABS: Absolute Lymphocyte Count 13.17 k/cumm (1.2-3.4); Absolute Neutrophil Count 7.86 k/cumm (1.2-6.7); Diff Comment Manual Differential; RBC Morphology Normal
[2019-01-23 12:36] LABS: Bilirubin Negative (Negative); Blood Small (Negative); Clarity Clear (Clear); Glucose 100 mg/dL (Negative); Ketones Negative (Negative); Leukocyte Esterase Negative (Negative); Nitrite Negative (Negative); Specific Gravity 1.015 (1.005-1.025); Urobilinogen 0.2 EU/dL (Up TO 0.2); pH 7.5 (5-8)
[2019-01-23] MEDS: Omnipaque 350 MG/ML 100 ML BTL IJ (12:44)
[2019-01-23 12:50] LABS: Bacteria Negative HPF (Negative); C & S Indicated? No; Casts Negative LPF (Negative); Crystals Negative HPF (Negative); Epithelial Cells Rare HPF (Negative); Mucus Negative (Negative); WBC 0-2 HPF (0-5)
[2019-01-23] MEDS: CLINDAMYCIN 600 MG/50 ML BAG 100 MG IVPB (13:00)
[2019-01-23 13:05] LABS: Source PERITONEAL
[2019-01-23 13:06] LABS: Clarity CLEAR
[2019-01-23 13:07] LABS: Mononuclear Cells 87 % (0-0); Nucleated Cells 11 /MM3 (0-0); Polynuclear Cells 13 % (0-0)
== END 2019-01-23 16:13 | disposition short-term general hospital (02) ==
PROVIDERS: Emergency Provider Student in an Organized Health Care Education/Training Program; PCP Family Medicine
DX: J18.9 Pneumonia, unspecified organism (principal); I21.4 Non-ST elevation (NSTEMI) myocardial infarction; R41.0 Disorientation, unspecified; E11.22 Type 2 diabetes mellitus with diabetic chronic kidney disease; Z79.4 Long term (current) use of insulin; N18.6 End stage renal disease; Z99.2 Dependence on renal dialysis; I12.0 Hypertensive chronic kidney disease with stage 5 chronic kidney disease or end stage renal disease; Z85.6 Personal history of leukemia
CPT/HCPCS: 36415; 51702; 71275; 74177; 80053; 87040; 93005; 96365; 96366; 96367; 96368; 99285; 70450; 81003; 81015; 82140; 83605; 84439; 84443; 84484; 85025; 85610; 85730; 87070; 87205; 89051; 93010; J3490

== ENCOUNTER 2019-02-17 22:32 | Emergency (ER) | payer MEDICARE, OTHER, SELFPAY ==
[2019-02-17 22:37] VITALS: BP 142/126; PULSE 77; RESP 19; TEMP 37; O2SAT 88
--- NOTE | 2019-02-17 22:51 | W.ED.GENAD ---
Discharge Plan Disposition Patient Disposition: HOME Condition: Stable Discharge Details Chief Complaint: SOB Clinical Impression: Shortness of breath Primary Care Provider: Vcikie Corey ED Provider: Abhishek Hayward Home Meds and New Rx's Prescriptions: Continued Lantus Solostar U-100 Insulin 100 unit/mL (3 mL) insulin pen 33 unit subcut BID RF: 0 aspirin 81 MG tablet,delayed release (DR/EC) 81 mg PO DAILY RF: 0 polyethylene glycol 3350 17 GM powder in packet 1 packet PO BID RF: 0 docusate sodium [Colace] 100 MG capsule 100 mg PO DAILY RF: 0 rosuvastatin [Crestor] 5 MG tablet 10 mg PO HS Qty: 30 RF: 3 metoprolol succinate 100 MG tablet extended release 24 hr 1 tab PO DAILY RF: 0 calcitriol 0.25 MCG capsule 0.25 mcg PO DAILY RF: 0 sevelamer carbonate [Renvela] 800 MG tablet 2,400 mg PO QMEALS RF: 0 Novolog Flexpen U-100 Insulin 300 UNITS/3 ML insulin pen See Rx Instructions .ROUTE .COMPLEX RF: 0 gabapentin 100 MG capsule 100 mg PO TID RF: 0 polyethylene glycol 3350 [Miralax] 17 gram Powder In Packet 17 g PO DAILY RF: 0 Discharge Instructions Additional Instructions: Your lab work did not show any new abnormalities and your xray did not show any significant abnormalities Follow up with your primary care provider within 1 week If you have the spell of shortness of breath and doesn't improve or gets a lot worse, you have severe pain or high fevers return to the emergency department Medical Decision Making 63 yo female with multiple medical problems including ESRD on peritoneal dialysis who comes in with shortness of breath starting today. She has had recent complicated few weeks including peritoneal infection requring intraperitoneal abx and recent admission for hypoxic respiratory failure secondary to missed peritoneal dialysis session who comes in tonight with shortness of breath starting tonight. [id number] on room air here on arrival was 89% and on 1L NC is 95% and she states she feels significantly better. She denies any chest pain/presure, fevers, cough. She has been having issues with hypoxia due to missed dialysis sessions and I suspect this is the cause of her symptoms tonight. She had negative CTA done at the end of December so doubt PE at this time. Will evaluate for anemia and obtain cxr. NO fever or cough so doubt pna. No chest pain or pressure so doubt acs at this time pt remains stable and is off oxygen at 95% on room air in no distress. LAbs and xray unremarkable. I discussed her symptoms further and she states she has spells of shortness of breath that normally go away after she sits in front of a fan but tonight they did not. I asked her if she feels anxiety or other symptoms and she states she feels she may. Given no acute changes on labs and imaging and o2 saturiation in the mid 90s on room air feel she can be d/c'd home and f/u with her pcp. She did request a nebulizer machine and I advised we don't have those to send home and generally aren't covered if ordered by ED provider and needs to be pcp, but would send her home with albuterol inhaler though her lungs are clear so do not feel it will significantly benefit her symptoms. Return precautions given Differential Diagnosis Differential Diagnosis: pulmonary edema, pna, copd Medical Records Medical records reviewed: Yes I reviewed the patient's medical records. Imaging Data Radiologic Study: Attestation: I personally reviewed and interpreted this imaging study as follows: Imaging: X-Ray My impression: no acute findings Radiologist's impression: no acute findings Lab Data Lab results reviewed: Yes I reviewed the patient's lab results. ECG Data Attestation: I personally reviewed and interpreted this ECG (s) as follows: Prior ECG tracings: not available for review Interpretation: sinus rhythm, rate of 80, pr 184, no acute st t wave ischemic findings HPI General Date/Time Provider Initiated Documentation: 02/17/19 22:41. Limitations to Documentation: no limitations. Information obtained by: patient. History of Present Illness 63 year old F presents to the emergency department with the chief complaint of shortness of breath, described as mild, and it has been constant. No relieving factors improve symptom(s), No exacerbating factors reported . Patient did receive the following treatments prior to arrival, none Related Data Home Medications Medication Instructions Recorded Confirmed aspirin 81 mg PO DAILY 10/26/12 01/23/19 docusate sodium [Colace] 100 mg PO DAILY 12/13/16 01/19/19 polyethylene glycol 3350 1 packet PO BID 12/13/16 01/23/19 rosuvastatin [Crestor] 10 mg PO HS #30 tab 12/14/16 01/23/19 calcitriol 0.25 mcg PO DAILY 09/12/17 01/23/19 metoprolol succinate 1 tab PO DAILY 09/12/17 01/23/19 sevelamer carbonate [Renvela] 2,400 mg PO QMEALS 11/16/17 01/19/19 gabapentin 100 mg PO TID 12/18/17 01/23/19 insulin glargine 100 unit/mL (3 33 unit SUBCUT BID ml 06/22/18 01/19/19 mL) subcutaneous pen Novolog Flexpen U-100 Insulin See Rx Instructions .ROUTE .COMPLEX 11/21/18 01/23/19 polyethylene glycol 3350 [Miralax] 17 g PO DAILY 01/23/19 01/23/19 Previous Rx's Medication Instructions Recorded rosuvastatin [Crestor] 10 mg PO HS #30 tab 12/14/16 Allergies Allergy/AdvReac Type Severity Reaction Status Date / Time alprazolam [From Xanax] Allergy Severe lethargic Unverified 02/17/19 22:41 vancomycin Allergy Intermediate localized Verified 02/17/19 22:41 itching/hives in arm where IV Vanco infusing ciprofloxacin [From Cipro] Allergy Mild Skin Rash Unverified 02/17/19 22:41 pneumococcal vaccine Allergy arm swelled Unverified 02/17/19 22:41 lisinopril AdvReac Intermediate hyperkalemi Unverified 02/17/19 22:41 a General Stated Complaint: SOB KAREN: 3 Review of Systems Review of Systems ROS Unobtainable: All systems reviewed & are unremarkable except as noted in HPI and below Constitutional Constitutional: Denies chills, Denies fever(s) and Denies weakness ENT Ears, Nose, Mouth, and Throat: Denies change in voice Cardiovascular Cardiovascular: Denies chest pain Gastrointestinal Gastrointestinal: Denies abdominal pain, Denies nausea and Denies vomiting Neurologic Neurologic: Denies weakness [facility] Social History Smoking/Tobacco Use Status: Never Alcohol Intake: never Drug use: Never Substance use type: does not use Caregiver/Support person: Yes Household members: significant other and children Housing: house Number of Children: 2 number of grandchildren: 3 current occupation: was a charge nurse at [employer] Pets and animals: Yes Pets and animals: dog(s), horse(s) and farm animals What type of physical activity do you participate in: restricted ROM & activity Do you feel safe at home: Yes Do you feel safe in your relationship?: Yes History History Para 2 Hx # Term Pregnancies Multiple births Hx # Pregnancies Ectopic pregnancies AB induced Hx Number of Living Children AB spontaneous Exam Const General: no acute distress Orientation: alert HENMT Head: normal to inspection Ears: external ears normal General nose exam: external nose normal Mouth: moist mucous membranes Eyes General: appearance normal, both eyes and all related structures Neck Neck: normal visual inspection Resp Effort & Inspection: normal respiratory effort and able to speak in complete sentences Cardio Rate: regular rate Skin General skin exam: no rashes or lesions noted Neuro General: alert and oriented x3 Extrem General: normal to inspection Psych Mental Status: mental status grossly normal Course Vital Signs Vital signs: Vital Signs Temperature 37 C 02/17/19 22:37 Pulse 77 02/17/19 22:37 Respiratory Rate 02/17/19 22:37 Blood Pressure 142/126 H 02/17/19 22:37 Pulse Oximetry 88 L 02/17/19 22:37 Temperature 37 C 02/17/19 22:37 Temperature Source Skin 02/17/19 22:37 Pulse 77 02/17/19 22:37 Respiratory Rate 02/17/19 22:37 Blood Pressure 142/126 H 02/17/19 22:37 Blood Pressure Position Sitting 02/17/19 22:37 Pulse Oximetry 88 L 02/17/19 22:37 Oxygen Delivery Method Room Air 02/17/19 22:37 Oxygen Flow Rate 0 02/17/19 22:37 Pain Level 0 02/17/19 22:37
--- NOTE | 2019-02-17 23:00 | DI.RAD_ITS ---
EXAM: XR CHEST 2V PA LATERAL INDICATION: shortness of breath. TECHNIQUE: 2D digital imaging was performed. FINDINGS: The lungs are well expanded and free of infiltrate. There is no pleural effusion. The cardiovascular structures appear intact. The bones and joints are normal. IMPRESSION: No evidence of acute disease.
[2019-02-17 23:14] LABS: BE (Venous) 3.9 mmol/L (-3-3); HCO3 (Venous) 29 mmol/L (22-28); O2 Sat (Venous) 69 % (70-80); TCO2 (Venous) 27 mmol/L (22-29); pCO2 (Venous) 50 mm/Hg (34-47); pH (Venous) 7.37 (7.32-7.43); pO2 (Venous) 37 mm/Hg (28-44)
[2019-02-17 23:24] LABS: Abs Immature Grans 0.12 k/cumm (0.0-0.09); HCT 34.9 % (36.0-46.0); HGB 11.5 g/dL (12.0-15.5); Mean Corpuscular Hemoglobin 32.4 pg (27.0-33.0); Mean Corpuscular Volume 98.3 fL (80-95); Mean Platelet Volume 11.7 fL (8.0-11.0); Platelet Count 143 x1000/uL (130-400); RBC 3.55 m/cumm (4.00-5.20); RBC Distribution Width 14.6 % (11.7-14.6); White Blood Cell Count 21.93 k/cumm (4.4-10.8)
[2019-02-17 23:30] VITALS: RESP 19
[2019-02-17 23:32] LABS: ALT 15 U/L (14-59); AST 49 U/L (15-37); Albumin 2.7 g/dL (3.4-5.0); Alkaline Phosphatase 111 U/L (46-116); Anion Gap 11.5 mmol/L (3-11); BUN 60 mg/dL (7-18); Bilirubin, Total 0.2 mg/dL (0.2-1.0); CO2 27.5 mmol/L (21.0-32.0); Calcium 9.3 mg/dL (8.5-10.1); Chloride 96 mmol/L (98-107); Estimated GFR 4.06 (mL/min/1.73m2); Glucose 143 mg/dL (70-100); Magnesium 1.9 mg/dL (1.8-2.4); Potassium 4.2 mmol/L (3.5-5.1); Sodium 135 mmol/L (136-145); Total Protein 6.6 g/dL (6.4-8.2)
[2019-02-17 23:34] LABS: CREATININE 9.71 mg/dL (0.55-1.02)
[2019-02-17 23:37] LABS: PTT Activated 21.4 sec (21.0-31.4); Prothrombin Time 9.8 sec (9.3-11.0)
[2019-02-17 23:40] LABS: Absolute Eosinophil Count 0.22 k/cumm (0.0-0.7); Absolute Lymphocyte Count 14.04 k/cumm (1.2-3.4); Absolute Monocyte Count 0.88 k/cumm (0.11-0.7); Atypical Lymphocytes % 0; Diff Comment Manual Differential; RBC Morphology Normal
--- NOTE | 2019-02-18 00:02 | DI.VRAD_ITS ---
PROCEDURE INFORMATION: Exam: XR Chest, 2 Views Exam date and time: 02/17/2019 11:01 PM Clinical history: 63 years old, female; Other: Shortness of breath TECHNIQUE: Imaging protocol: XR of the chest Views: 2 views. COMPARISON: SC XR CHEST 2V PA LATERAL 05/25/2018 8:28 PM FINDINGS: Lungs: Unremarkable. No consolidation. Pleural space: Unremarkable. No evidence of pneumothorax. Heart/Mediastinum: Unremarkable. Heart size within normal limits for technique. Bones/joints: Unremarkable. IMPRESSION: No acute findings. Dictated and Authenticated by: Tam Phan MD. Ordering:JOSÉ LUIS Weiss MD
[2019-02-18 00:16] VITALS: BP 105/78; PULSE 88; RESP 20; TEMP 36.5; O2SAT 94
== END 2019-02-18 00:30 | disposition home or self-care (01) ==
PROVIDERS: Emergency Provider Emergency Medicine; PCP Family Medicine
DX: R06.02 Shortness of breath (principal); I12.0 Hypertensive chronic kidney disease with stage 5 chronic kidney disease or end stage renal disease; E11.22 Type 2 diabetes mellitus with diabetic chronic kidney disease; N18.6 End stage renal disease; Z79.4 Long term (current) use of insulin; Z99.2 Dependence on renal dialysis
CPT/HCPCS: 36415; 80053; 82805; 93005; 99285; 71046; 83735; 85025; 85610; 85730; 93010

== ENCOUNTER 2019-02-25 02:42 | Outpatient (CLI) | payer MEDICARE, OTHER, SELFPAY | END 2019-02-25 03:02 | PROVIDERS: PCP Family Medicine; Visit Provider Family Medicine | DX: R06.02 Shortness of breath (principal) | CPT/HCPCS: 94762 ==

== ENCOUNTER 2019-03-09 12:48 | Emergency (ER) | payer MEDICARE, OTHER, SELFPAY ==
[2019-03-09] VITALS (61 sets, daily range): BP systolic 72–164; BP diastolic 40–87; PULSE 71–92; RESP 12–34; TEMP 37; O2SAT 82–98
--- NOTE | 2019-03-09 13:19 | DI.RAD_ITS ---
EXAM: XR CHEST 2V PA LATERAL INDICATION: chest pain, r/o acute disease. COMPARISON: XR CHEST 2V PA LATERAL from 02/17/2019 TECHNIQUE: 2D digital imaging was performed. FINDINGS: The heart is at the upper limits of normal in size. Lungs are grossly clear with some apparent culver es of scarring. No focal consolidation. No pleural effusion or pneumothorax. IMPRESSION: No evidence acute process.
--- NOTE | 2019-03-09 13:20 | ED.GENADUL_ITS ---
Discharge Plan Disposition Patient Disposition: [facility] Condition: Stable Discharge Details Chief Complaint: Chest Pain Clinical Impression: NSTEMI (non-ST elevated myocardial infarction), ESRD on peritoneal dialysis Primary Care Provider: Vickie Corey ED Provider: Yovana Osborn Home Meds and New Rx's Prescriptions: No Action Lantus Solostar U-100 Insulin 100 unit/mL (3 mL) insulin pen 33 unit subcut BID RF: 0 aspirin 81 MG tablet,delayed release (DR/EC) 81 mg PO DAILY RF: 0 polyethylene glycol 3350 17 GM powder in packet 1 packet PO BID RF: 0 docusate sodium [Colace] 100 MG capsule 100 mg PO DAILY RF: 0 rosuvastatin [Crestor] 5 MG tablet 10 mg PO HS Qty: 30 RF: 3 calcitriol 0.25 MCG capsule 0.25 mcg PO DAILY RF: 0 sevelamer carbonate [Renvela] 800 MG tablet 2,400 mg PO QMEALS RF: 0 Novolog Flexpen U-100 Insulin 300 UNITS/3 ML insulin pen See Rx Instructions .ROUTE .COMPLEX RF: 0 gabapentin 100 MG capsule 100 mg PO TID RF: 0 polyethylene glycol 3350 [Miralax] 17 gram Powder In Packet 17 g PO DAILY RF: 0 Discharge Data Discharge Date/Time-TO BE ENTERED AT DEPARTURE: 03/09/19 18:35 Medical Decision Making 1310 -- 63-year-old female with multiple medical problems including coronary artery disease, end-stage renal disease on peritoneal dialysis, diabetes, hypertension, hyperlipidemia, CLL presents with substernal chest pain and nausea that started 2 hours prior to arrival while resting at home. EKG notes a rate of 95, atrial flutter, t wave inversion aVL, no acute ST elevation or depression. No acute change from previous EKG. ED records note that patient was transferred to [facility] last month for NSTEMI -patient states she was unaware of this. Will obtain [facility] records. Differential diagnosis includes ACS, electrolyte abnormality, arrhythmia, dehydration, musculoskeletal, will place an IV, check screening labs, chest x- ray. She states her chest pain is 10/10. She took 3 tabs of chewable aspirin at home. We will give 1 additional 81 mg chewable aspirin as well as nitro and reassess. Patient was given 2 tabs of nitro and she began vomiting and her pressure was 70/40. It was rechecked and she was given 100 cc normal saline and her BP normalized at 130s over 80s. She admitted to some improvement in her chest pain after this. 1415 -- Labs reviewed and white blood cell count 27 which is pt's baseline with her history of CLL. Troponin elevated but indeterminate 0.07. Creatinine 9 which is her baseline. Chest x-ray negative. Patient will need to be admitted for serial troponins but will check a second troponin and EKG to see if up or downtrending. 1530 -- Repeat troponin uptrending to 1.07. Repeat EKG unchanged. Patient is currently chest pain-free. Will start heparin bolus and drip, and 300 mg Plavix p.o. 1600 -- Case discussed with [facility] cardiology who accepts patient for transfer. Accepting physician Dr. Otero. Case was also discussed with [facility] cardiology who accepted patient for transfer pending consult with [facility] when [facility] transfer center had initially stated that there were no beds available. Medical Records Medical records reviewed: Yes I reviewed the patient's medical records. Imaging Data Radiologic Study: Radiologist's impression: XR Chest, 2 Views Exam date and time: 03/09/2019 1:35 PM Clinical history: 63 years old, female; Chest pain TECHNIQUE: Imaging protocol: XR of the chest Views: 2 views. COMPARISON: CR XR CHEST 2V PA LATERAL 02/17/2019 11:21 PM FINDINGS: Lungs: Bibasilar atelectasis Pleural space: Unremarkable. No pleural effusion. No pneumothorax. Heart/Mediastinum: Mild cardiomegaly Bones/joints: Unremarkable. Other findings: Overlying EKG wires IMPRESSION: No acute process Lab Data Lab results reviewed: Yes I reviewed the patient's lab results. Labs: Laboratory Tests Range/Units 03/09/19 03/09/19 03/09/19 13:07 13:07 13:07 WBC (4.4-10.8) k/cumm 27.79 H* RBC (4.00-5.20) m/cumm 4.06 Hgb (12.0-15.5) g/dL 13.2 Hct (36.0-46.0) % 39.4 MCV (80-95) fL 97.0 H MCH (27.0-33.0) pg 32.5 MCHC (32.0-36.0) g/dL 33.5 RDW (11.7-14.6) % 13.9 Plt Count (130-400) x1000/uL 171 MPV (8.0-11.0) fL 10.8 Immature Gran % 0.0 Neutrophils % 30.0 Lymphocytes % 68.0 Monocytes % 2.0 Eosinophils % 0.0 Basophils % 0.0 Absolute Neutrophils (1.2-6.7) k/cumm 8.34 H Absolute Lymphocytes (1.2-3.4) k/cumm 18.90 H Absolute Monocytes (0.11-0.7) k/cumm 0.56 Absolute Eosinophils (0.0-0.7) k/cumm 0.00 Absolute Basophils (0.0-0.2) k/cumm 0.00 Differential Comment Manual differential RBC Morphology Normal PT (9.3-11.0) sec 10.1 INR (0.9-1.1) 1.0 APTT (21.0-31.4) sec 20.9 L Sodium (136-145) mmol/L 139 Potassium (3.5-5.1) mmol/L 4.2 Chloride (98-107) mmol/L 98 Carbon Dioxide (21.0-32.0) mmol/L 27.0 Anion Gap (3-11) mmol/L 14.0 H BUN (7-18) mg/dL 68 H Creatinine (0.55-1.02) mg/dL 9.55 H* Estimated GFR/1.73 m2 (mL/min/1.73m2) 4.14 Glucose (70-100) mg/dL 192 H Calcium (8.5-10.1) mg/dL 9.5 Magnesium (1.8-2.4) mg/dL 2.0 Total Bilirubin (0.2-1.0) mg/dL 0.4 AST (15-37) U/L 27 ALT (14-59) U/L 25 Alkaline Phosphatase (46-116) U/L 98 Troponin I (0.00-0.06) ng/mL 0.07 H Total Protein (6.4-8.2) g/dL 7.2 Albumin (3.4-5.0) g/dL 3.3 L Range/Units 03/09/19 15:10 WBC (4.4-10.8) k/cumm RBC (4.00-5.20) m/cumm Hgb (12.0-15.5) g/dL Hct (36.0-46.0) % MCV (80-95) fL MCH (27.0-33.0) pg MCHC (32.0-36.0) g/dL RDW (11.7-14.6) % Plt Count (130-400) x1000/uL MPV (8.0-11.0) fL Immature Gran % Neutrophils % Lymphocytes % Monocytes % Eosinophils % Basophils % Absolute Neutrophils (1.2-6.7) k/cumm Absolute Lymphocytes (1.2-3.4) k/cumm Absolute Monocytes (0.11-0.7) k/cumm Absolute Eosinophils (0.0-0.7) k/cumm Absolute Basophils (0.0-0.2) k/cumm Differential Comment RBC Morphology PT (9.3-11.0) sec INR (0.9-1.1) APTT (21.0-31.4) sec Sodium (136-145) mmol/L Potassium (3.5-5.1) mmol/L Chloride (98-107) mmol/L Carbon Dioxide (21.0-32.0) mmol/L Anion Gap (3-11) mmol/L BUN (7-18) mg/dL Creatinine (0.55-1.02) mg/dL Estimated GFR/1.73 m2 (mL/min/1.73m2) Glucose (70-100) mg/dL Calcium (8.5-10.1) mg/dL Magnesium (1.8-2.4) mg/dL Total Bilirubin (0.2-1.0) mg/dL AST (15-37) U/L ALT (14-59) U/L Alkaline Phosphatase (46-116) U/L Troponin I (0.00-0.06) ng/mL 1.07 H* Total Protein (6.4-8.2) g/dL Albumin (3.4-5.0) g/dL ECG Data Attestation: I personally reviewed and interpreted this ECG (s) as follows: Interpretation: #1 -- rate of 95, sinus, T wave inversion in aVL which is seen in previous EKG. No acute ST elevation or depression. No acute change from previous EKG. Read as atrial flutter but appear consistent with sinus. #2 --Rate of 80, sinus, T wave inversion in aVL, no acute ST elevation or depression. ND 196. QTc 4 5. QRS 94. HPI General Mode of arrival: EMS . Date/Time Provider Initiated Documentation: 03/09/19 12:57 . Limitations to Documentation: no limitations . Information obtained by: patient . HPI Narrative: Patient is a 63-year-old female who presents with anterior chest pressure that started while sitting at home at 11:30 AM today. She denies any radiation of pain. States the pain is currently 10/10. She denies any aggravating or alleviating factors. She admits to nausea but denies any vomiting, dizziness, shortness of breath. She states she does peritoneal dialysis that she lasted at 8 AM but missed her 12 noon session today. Patient was transferred to [facility] 2 weeks ago for an NSTEMI. Related Data Home Medications Medication Instructions Recorded Confirmed aspirin 81 mg PO DAILY 10/26/12 03/09/19 docusate sodium [Colace] 100 mg PO DAILY 12/13/16 03/09/19 polyethylene glycol 3350 1 packet PO BID 12/13/16 03/09/19 rosuvastatin [Crestor] 10 mg PO HS #30 tab 12/14/16 03/09/19 calcitriol 0.25 mcg PO DAILY 09/12/17 03/09/19 sevelamer carbonate [Renvela] 2,400 mg PO QMEALS 11/16/17 03/09/19 gabapentin 100 mg PO TID 12/18/17 03/09/19 insulin glargine 100 unit/mL (3 33 unit SUBCUT BID ml 06/22/18 03/09/19 mL) subcutaneous pen Novolog Flexpen U-100 Insulin See Rx Instructions .ROUTE .COMPLEX 11/21/18 03/09/19 polyethylene glycol 3350 [Miralax] 17 g PO DAILY 01/23/19 03/09/19 Previous Rx's Medication Instructions Recorded rosuvastatin [Crestor] 10 mg PO HS #30 tab 12/14/16 Allergies Allergy/AdvReac Type Severity Reaction Status Date / Time alprazolam [From Xanax] Allergy Severe lethargic Unverified 03/09/19 13:05 vancomycin Allergy Intermediate localized Verified 03/09/19 13:05 itching/hives in arm where IV Vanco infusing ciprofloxacin [From Cipro] Allergy Mild Skin Rash Unverified 03/09/19 13:05 pneumococcal vaccine Allergy arm swelled Unverified 03/09/19 13:05 lisinopril AdvReac Intermediate hyperkalemi Unverified 03/09/19 13:05 a General Stated Complaint: Chest Pain KAREN: 2 Review of Systems Review of Systems ROS Unobtainable: All systems reviewed & are unremarkable except as noted in HPI and below Constitutional Constitutional: Reports as per HPI, Denies chills and Denies fever(s) Eyes Eyes: Denies blurry vision ENT Ears, Nose, Mouth, and Throat: Denies dizziness, Denies sore throat and Denies throat swelling Cardiovascular Cardiovascular: Reports chest pain and Denies dyspnea Respiratory Respiratory: Denies cough and Denies dyspnea Gastrointestinal Gastrointestinal: Denies abdominal pain, Denies diarrhea, Reports nausea and Denies vomiting Genitourinary Genitourinary: Denies hematuria and Denies dysuria Musculoskeletal Musculoskeletal: Denies back pain and Denies numbness Integumentary/Breasts Skin/Breast: Denies lesions and Denies rash Neurologic Neurologic: Denies dizziness, Denies focal weakness and Denies numbness Allergic/Immunologic Allergic/Immunologic: Denies throat swelling [facility] Medical History Adjustment disorder (Acute) Chronic kidney disease, stage 4, severely decreased GFR Chronic lymphocytic leukemia Cystocele ESRD (end stage renal disease) on dialysis (Acute) Hearing deficit Hyperlipidemia (Acute 05/05/14) Hypertension Palliative care patient (Acute) Peritoneal dialysis status (Acute) Prolapse, post-hysterectomy 2010 - treated with #3 ring pessary with support. 2013 poor surgical candidate secondary to medical co-morbidities. 2015 changed to #2 ring with support secondary to vaginal erosion Type 2 diabetes mellitus treated with insulin (Acute) Verruca vulgaris Surgical History section 2 total. 1978 and 1980.HE Colonoscopy - IV Sedation Extraction of cataract Hysterectomy, Laproscopic (10/17/02) LAVH, A+P repair for chronic pelvic pain. Tubes and ovaries conserved. EP Tonsillectomy pt states approx 51 years ago (1961).HE Family History Brother Hearing loss Other Diabetes Hypertension Social History Smoking/Tobacco Use Status: Never Alcohol Intake: never Drug use: Never Substance use type: does not use Caregiver/Support person: Yes Household members: significant other and children Housing: house Number of Children: 2 number of grandchildren: 3 current occupation: was a charge nurse at [employer] and Pets and animals: Yes Pets and animals: dog(s), horse(s) and farm animals What type of physical activity do you participate in: restricted ROM & activity Do you feel safe at home: Yes Do you feel safe in your relationship?: Yes History History Para 2 Hx # Term Pregnancies Multiple births Hx # Pregnancies Ectopic pregnancies AB induced Hx Number of Living Children AB spontaneous Exam Const General: cooperative and no acute distress HENMT Head: normal to inspection Face and sinus: normal facial exam Eyes General: appearance normal, both eyes and all related structures Pupils: PERRL EOM: EOM intact bilaterally Neck Neck: normal visual inspection and No submandibular swelling Lymphatic: no lymphadenopathy noted Chest Chest: normal inspection of the chest and no tenderness Resp Effort & Inspection: normal respiratory effort and able to speak in complete sentences Auscultation: clear to auscultation bilaterally Cardio Rate: regular rate Rhythm: regular rhythm GI Inspection: normal to inspection Palpation: soft, not firm, not rigid and nontender Auscultation: normal bowel sounds Other: PD catheter in left lower quadrant. No signs of infection or tenderness. Skin General skin exam: no rashes or lesions noted Neuro General: alert, awake and oriented x3 Cognition: normal cognition Speech: speech normal Motor: muscle tone normal throughout Sensory Exam: no sensory deficits noted Extrem General: normal to inspection, full ROM, normal capillary refill, no calf tenderness bilaterally and no edema Psych Appearance: grossly normal Mental Status: mental status grossly normal Speech and Movement: speech and movement normal Affect: normal affect Course Vital Signs Vital signs: Vital Signs Temperature 98.6 F 03/09/19 13:02 Pulse 92 H 03/09/19 13:02 Respiratory Rate 16 03/09/19 13:02 Pulse Oximetry 95 03/09/19 13:02 Temperature 98.6 F 03/09/19 13:02 Temperature Source Skin 03/09/19 13:02 Pulse 92 H 03/09/19 13:02 Respiratory Rate 22 03/09/19 13:15 Respiratory Effort Non-Labored 03/09/19 13:15 Respiratory Depth Normal 03/09/19 13:15 Respiratory Pattern Normal 03/09/19 13:15 Blood Pressure Position Supine 03/09/19 13:02 Pulse Oximetry 95 03/09/19 13:02 Oxygen Delivery Method Room Air 03/09/19 13:02 Oxygen Flow Rate 0 03/09/19 13:02 Pain Level 8 03/09/19 13:15
[2019-03-09 13:29] LABS: HCT 39.4 % (36.0-46.0); HGB 13.2 g/dL (12.0-15.5); Mean Corp. HGB Concentration 33.5 g/dL (32.0-36.0); Mean Corpuscular Hemoglobin 32.5 pg (27.0-33.0); Mean Platelet Volume 10.8 fL (8.0-11.0); Platelet Count 171 x1000/uL (130-400); RBC 4.06 m/cumm (4.00-5.20); RBC Distribution Width 13.9 % (11.7-14.6)
[2019-03-09 13:33] LABS: White Blood Cell Count 27.79 k/cumm (4.4-10.8)
[2019-03-09 13:42] LABS: Absolute Monocyte Count 0.56 k/cumm (0.11-0.7); Absolute Neutrophil Count 8.34 k/cumm (1.2-6.7); Diff Comment Manual Differential; RBC Morphology Normal
[2019-03-09 13:43] LABS: ALT 25 U/L (14-59); AST 27 U/L (15-37); Albumin 3.3 g/dL (3.4-5.0); Alkaline Phosphatase 98 U/L (46-116); BUN 68 mg/dL (7-18); Bilirubin, Total 0.4 mg/dL (0.2-1.0); Calcium 9.5 mg/dL (8.5-10.1); Chloride 98 mmol/L (98-107); Estimated GFR 4.14 (mL/min/1.73m2); Glucose 192 mg/dL (70-100); Potassium 4.2 mmol/L (3.5-5.1); Sodium 139 mmol/L (136-145); Total Protein 7.2 g/dL (6.4-8.2)
[2019-03-09 13:47] LABS: CREATININE 9.55 mg/dL (0.55-1.02)
[2019-03-09 13:48] LABS: Troponin I 0.07 ng/mL (0.00-0.06)
[2019-03-09] MEDS: Aspirin 81 MG CHEW (13:52)
[2019-03-09] MEDS: Ondansetron 4 MG/2 ML VIAL (13:55)
[2019-03-09] MEDS: Normal Saline 250 ML IV (14:09)
--- NOTE | 2019-03-09 14:18 | DI.VRAD_ITS ---
PROCEDURE INFORMATION: Exam: XR Chest, 2 Views Exam date and time: 03/09/2019 1:35 PM Clinical history: 63 years old, female; Chest pain TECHNIQUE: Imaging protocol: XR of the chest Views: 2 views. COMPARISON: CR XR CHEST 2V PA LATERAL 02/17/2019 11:21 PM FINDINGS: Lungs: Bibasilar atelectasis Pleural space: Unremarkable. No pleural effusion. No pneumothorax. Heart/Mediastinum: Mild cardiomegaly Bones/joints: Unremarkable. Other findings: Overlying EKG wires IMPRESSION: No acute process Dictated and Authenticated by: Camden Hammer MD. Ordering:LEANNE Yen MD
[2019-03-09 15:47] LABS: Troponin I 1.07 ng/mL (0.00-0.06)
[2019-03-09] MEDS: Clopidogrel 300 MG TAB PO (16:45)
[2019-03-09 17:06] LABS: PTT Activated 20.9 sec (21.0-31.4); Prothrombin Time 10.1 sec (9.3-11.0)
[2019-03-09] MEDS: Acetaminophen 325 MG TAB (17:30)
== END 2019-03-09 18:35 | disposition short-term general hospital (02) ==
PROVIDERS: Emergency Provider Physician Assistant; PCP Family Medicine
DX: I21.4 Non-ST elevation (NSTEMI) myocardial infarction (principal); E11.22 Type 2 diabetes mellitus with diabetic chronic kidney disease; N18.6 End stage renal disease; I12.0 Hypertensive chronic kidney disease with stage 5 chronic kidney disease or end stage renal disease; Z99.2 Dependence on renal dialysis; Z79.4 Long term (current) use of insulin
CPT/HCPCS: 36415; 80053; 93005; 96365; 96366; 96367; 99285; 71046; 83735; 84484; 85025; 85610; 85730; 93010; J2405

== ENCOUNTER 2019-03-26 13:15 | Outpatient (REF) | payer MEDICARE, OTHER, SELFPAY ==
[2019-03-26 21:53] LABS: Calculated LDL 79 mg/dL; Cholesterol 161 mg/dL (50-200); HDL Cholesterol 38 mg/dL (40-60); Triglyceride 220 mg/dL (30-150)
== END 2019-03-26 13:35 ==
LOC: NCHCN 13:15
PROVIDERS: PCP Family Medicine; Visit Provider Specialist/Technologist Athletic Trainer
DX: E78.5 Hyperlipidemia, unspecified (principal)
CPT/HCPCS: 80061